=== PATIENT | female | born 1935 | race Caucasian/White ===

== ENCOUNTER 2017-06-28 05:58 | Day surgery (SDC) | payer MEDICARE ==
[2017-06-27 14:26] VITALS: BMI 26.5
[2017-06-28] MEDS ORDERED: Sodium Chloride 0.9% 10 ML ONE ×2 (06:53→08:24)
[2017-06-28 07:11] LABS: #Basophils 0.1 thou/uL (0.0-0.2); #Eosinphils 0.1 thou/uL (0.0-0.7); #Lymphocytes 2.3 thou/uL (1.20-3.40); #Monocytes 1.4 thou/uL (0.11-0.59); %Basophils 0.4 % (0.0-1.0); %Eosinophils 0.9 % (0.0-10.0); %Lymphocytes 17.9 % (21.0-51.0); %Monocytes 10.7 % (0.0-10.0); Hematocrit 41.1 % (36.0-47.0); Mean Platelet Volume 6.9 fL (7.4-10.4); Red Blood Cell (RBC) Count 4.55 mill/uL (4.20-5.40); White Blood Cell (WBC) Count 12.8 thou/uL (4.8-10.8)
[2017-06-28] MEDS ORDERED: Diprivan 20 ML ONE (07:15)
[2017-06-28 07:27] LABS: Prothrombin Time 15.4 SEC (12.0-14.7)
[2017-06-28] MEDS ORDERED: Propofol 200 MG/20 ML VIAL ONE (07:33)
[2017-06-28] MEDS ORDERED: Hydrocortisone 1% Cream 30 GM TUBE ONE (07:47)
--- NOTE | 2017-06-28 08:13 | DIS ---
DATE OF PROCEDURE AND DISCHARGE: 06/28/2017 ADMITTING DIAGNOSES: Her diagnosis prior to being seen in the outpatient was atrial fibrillation, c hronic nonsustained atrial tachyarrhythmia's, structural heart disease, hypercholesterolemia, histor y of premature ventricular contractions, history of coronary disease, status post angioplasty and s tent placement and this was remote. Also history of malignancy. DISCHARGE DIAGNOSES: Her diagnosis prior to being seen in the outpatient was atrial fibrillation, c hronic nonsustained atrial tachyarrhythmia's, structural heart disease, hypercholesterolemia, histor y of premature ventricular contractions, history of coronary disease, status post angioplasty and s tent placement and this was remote. Also history of malignancy. PROCEDURES IN THE HOSPITAL: Electrical cardioversion of atrial fibrillation back to sinus rhythm. DISCHARGE MEDICATIONS: Lipitor, calcium, vitamin D3, Eliquis, levothyroxine, multivitamins, pantopr azole, potassium chloride, probiotics, alprazolam, Lasix, morphine aldosteronism and promethazine. Please refer to the list of medications from the nursing staff that have been reordered or continued . This is unchanged. Her followup will be with the information technology internship the next 2-3 weeks. She will see me at her predet ermined time, she already has an appointment to see me in the office in the next 1-2 months. HOSPITAL COURSE: This very pleasant 82-year-old female with a history of atrial tachycardia's and a rrhythmias, had developed atrial fibrillation with rapid ventricular response. She had been on medi nguyễn management in the form of Multaq as well as Eliquis and was advised to undergo an electrocardiov ersion of atrial fibrillation. This was performed today after she was given shorter acting propofol with 1 attempt at 275. She was successfully converted back to a normal sinus rhythm. When she is awake and stable, she will be discharged home and we will see her back as noted.
--- NOTE | 2017-06-28 08:39 | OP ---
DATE OF PROCEDURE: 06/28/2017 INDICATION FOR PROCEDURE: An 82-year-old female with atrial fibrillation, has been on medical manag ement and also anticoagulation. She has a history of atrial tachycardia and atrial fibrillation and also a history of coronary artery disease. She was advised to undergo electrical cardioversion of her atrial fibrillation. She was taken to the recovery area where she underwent short acting propof ol anesthesia. With one attempt at 275 joules she was successfully converted back to sinus rhythm w ith a heart rate in the 70s and 80s with occasional PVCs, which she has had in the past. There were no complications or difficulties encountered. She will be discharged home if she remains stable.
== END 2017-06-28 08:46 | disposition home or self-care (01) ==
LOC: SDC 05:58
PROVIDERS: ATTEND Internal Medicine Cardiovascular Disease
DX: I48.91 Unspecified atrial fibrillation (principal); I47.1 Supraventricular tachycardia; I49.3 Ventricular premature depolarization; E87.5 Hyperkalemia; E78.5 Hyperlipidemia, unspecified; I25.10 Atherosclerotic heart disease of native coronary artery without angina pectoris; Z79.01 Long term (current) use of anticoagulants; Z79.899 Other long term (current) drug therapy; Z88.1 Allergy status to other antibiotic agents; Z88.5 Allergy status to narcotic agent; Z98.61 Coronary angioplasty status; Z95.828 Presence of other vascular implants and grafts; Z98.890 Other specified postprocedural states; Z87.891 Personal history of nicotine dependence
CPT/HCPCS: 85025; 85610; 85730; 92960; A4216; J1642; J2704

== ENCOUNTER 2017-07-11 14:46 | Outpatient (CLI) | payer MEDICARE ==
[2017-07-11 17:43] LABS: PTT 37.3 SEC (22.9-36.1); Prothrombin Time 14.6 SEC (12.0-14.7)
[2017-07-11 18:00] LABS: Hematocrit 41.6 % (36.0-47.0); Mean Platelet Volume 7.5 fL (7.4-10.4); Red Blood Cell (RBC) Count 4.49 mill/uL (4.20-5.40); White Blood Cell (WBC) Count 32.9 thou/uL (4.8-10.8)
[2017-07-11 18:04] LABS: Anion Gap 12 mmol/L (10-20); BUN (Urea Nitrogen) 10 mg/dL (9.8-20.1); Calc. Creatinine Clearance 0 mL/min (70-130); Carbon Dioxide 29 mmol/L (23-31); Chloride 104 mmol/L (98-107); Estimated GFR-MDRD 68
[2017-07-11 18:05] LABS: Calcium 9.6 mg/dL (7.8-10.44)
== END 2017-07-11 14:47 | disposition home or self-care (01) ==
LOC: LABBT 14:46
PROVIDERS: ATTEND Internal Medicine Cardiovascular Disease
DX: I48.0 Paroxysmal atrial fibrillation (principal)
CPT/HCPCS: 80048; 85027; 85610; 85730

== ENCOUNTER 2017-07-13 10:16 | Outpatient (CLI) | payer MEDICARE ==
[2017-07-13] MEDS ORDERED: Iopamidol 370 76% 50 ML VIAL FS ONE (13:26)
[2017-07-13] MEDS ORDERED: Iopamidol 370 76% 100 ML VIAL ONE (13:26)
--- NOTE | 2017-07-13 16:36 | CT ---
CT CHEST WITH IV CONTRAST CT ABDOMEN AND PELVIS WITH IV CONTRAST 07/13/17 Multiple axial tomograms obtained through the chest, abdomen and pelvis with IV enhancement. Oral co ntrast was given. HISTORY: Ovarian cancer. Currently on chemo. CT CHEST: Comparison made to CT angio of chest 04/08/17. FINDINGS: The lung davis are clear today. The large right effusion noted on the prior exam is no longer prese nt. Hazy ground glass opacities seen in the lower lungs on the prior study is no longer present cate cating clearing of edema. There is no evidence of pulmonary mass or nodule. No mediastinal adenopath y. No axillary adenopathy. Bony thorax appears unremarkable. IMPRESSION: Unremarkable CT chest. CT ABDOMEN AND PELVIS: Comparison made to CT abdomen 04/09/17. No evidence of ascites today. The liver, spleen and pancreas appear unremarkable. A few exophytic cy sts on the superior left kidney measuring 1.8 cm is unchanged. Kidneys show equal and symmetric func tion. There is a small cyst from the anterior lower right kidney measuring approximately 11.0 cm whi ch is stable. There appears to be 2 to 3 tiny calculi which are clustered in the lower collecting structures of th e left kidney. This is a stable finding. There is also a tiny calculus in the lower pole collecting structures of the right kidney measuring approximately 2 to 3 mm which appears to represent a new fi nding. Small bowel loops are normal caliber. Review of the colon reveals increased soft tissue density in t he right colon. A mucosal mass at this location could be excluded. Recommend elective colonoscopy. The aorta is calcified but normal caliber. Review of the mesentery and retroperitoneum again shows scattered mesenteric lymph nodes measuring u p to 1 cm. These are best appreciated on coronal imaging. There are numerous periaortic lymph nodes most of which are subcentimeter. There is haziness in the mesentery seen in the anterior abdomen in the midline and to the left of midline at the level of the transverse colon. This could represent so me residual density from prior mesenteric implants. This mesenteric density does appear improved whe n compared to 04/09/17. The mesenteric lymph nodes also appear decreased in number today when compare d to prior exam. Images through the pelvis show unremarkable uterus for age. There is an 8 mm calcification in the le ft adnexa which may be ovarian. It is unchanged. Osseous structures are unremarkable with no evidenc e of lytic or blastic process. IMPRESSION: 1. Nonspecific mesenteric and periaortic lymph nodes are seen. Linear and hazy density in the m esentery anterior mid abdomen in the midline and to the left of midline is less pronounced than on t he prior study. This probably represents residual from mesenteric implants which have improved with treatment. 2. There is a focal soft tissue density in the right colon. A mucosal lesion should be excluded with colonoscopy. 3. Renal cystic lesions are stable. 4. Nonobstructing renal calculi is noted as described above. 5. Diverticulosis. POS: [facility]
== END 2017-07-13 10:17 | disposition home or self-care (01) ==
LOC: CT 10:16
PROVIDERS: ATTEND Internal Medicine Hematology & Oncology
DX: C48.1 Malignant neoplasm of specified parts of peritoneum (principal); N28.1 Cyst of kidney, acquired; K50.90 Crohn's disease, unspecified, without complications; N20.0 Calculus of kidney
CPT/HCPCS: 71260; 74177

== ENCOUNTER → 2017-07-14 | Day surgery (SDC) | payer MEDICARE ==
[2017-07-11 15:15] VITALS: BMI 26.5
[~2017-07-14] MED LIST: Diprivan 20 ML ONE; Propofol 200 MG/20 ML VIAL ONE
--- NOTE | 2017-07-14 07:56 | DIS ---
DATE OF PROCEDURE 07/14/2017 ADMISSION DIAGNOSES: She was seen in the outpatient setting to undergo electrical cardioversion of atrial fibrillation which also was determined and also has converted to atrial flutter. She had bee n on antiarrhythmic medication. She has a history of structural heart disease, hypercholesterolemia , history of PVCs in the past, premature ventricular contractions, she has a history of coronary art sofia disease. She is status post angioplasty and stent placement in the past. She has apparently si ngle vessel disease for which she underwent multiple stents in the same vessel. DISCHARGE DIAGNOSES: Atrial flutter and prior atrial fibrillation with nonsustained atrial tachycar ankit, structural heart disease, hypercholesterolemia, premature ventricular contractions, coronary ar sugey disease, status post angioplasty and stent placement and history of malignancy for which she is undergoing chemotherapy. PROCEDURE IN THE HOSPITAL: Included an electrical cardioversion of atrial flutter back to sinus rhy thm. DISCHARGE MEDICATIONS: Lipitor, calcium, vitamin D3, Eliquis, levothyroxine, multivitamins, pantopr azole, potassium chloride, probiotics, alprazolam, Lasix as needed, morphine, aldosterone, promethaz ine. She is also taking flecainide 100 mg b.i.d., digoxin 0.25 mg daily, and Coreg 6.25 mg b.i.d. I will decrease the digoxin dose back to 0.125 mg daily. She will continue on the Eliquis at 5 mg t wice a day. FOLLOWUP: Her follow will be with me in the next 1-2 weeks with an EKG in the office to ensure that she remains in sinus rhythm. She will continue her followups also with the planetarium sky show technician as needed. HOSPITAL COURSE: This very pleasant 82-year-old female has a history of atrial fibrillation/flutter and atrial arrhythmias which had been difficult to manage on medical treatment. We have tried diff erent various medications including Multaq, which has not maintained her in sinus rhythm. She had u ndergone previous electrocardioversion, but converted back to atrial fibrillation. She was then swi tched over to flecainide as well as beta blockers and digoxin and when she arrived today for the elizabet ctrical cardioversion she appeared to be in atrial flutter with a variable block. She underwent elizabet ctrical cardioversion with one attempt at 150 joules and is maintaining now sinus rhythm. If she re alejandro stable, she will be discharged home in the next couple of hours.
--- NOTE | 2017-07-14 09:34 | OP ---
DATE OF PROCEDURE: 07/14/2017 INDICATION FOR PROCEDURE: An 82-year-old female with atrial fibrillation, flutter and atrial arrhyt hmias have been treated by medical management. She continued to have episodes of atrial fibrillatio n and was then converted over to flecainide after being given several days of flecainide treatment. She was advised to undergo repeat attempt electrical cardioversion. When she arrived today, she ap peared to be in atrial flutter actually, and we decided to proceed with the electrical cardioversion . She was given short acting propofol for the procedure and using one attempt at 150 joules, she wa s successfully converted back to normal sinus rhythm with heart rate in the 70s. She remains stable . She had no complications during the procedure and if she remains stable, will be discharged home. IMPRESSION: Atrial fibrillation, atrial flutter, atrial arrhythmias, which were successfully cardio verted back to normal sinus rhythm.
--- NOTE | 2017-07-14 15:26 | EKG ---
Test Reason : POST CARDIOVERSION Blood Pressure : / mmHG Vent. Rate : 079 BPM Atrial Rate : 079 BPM P-R Int : 228 ms QRS Dur : 096 ms QT Int : 372 ms P-R-T Axes : 069 038 128 degrees QTc Int : 426 ms Sinus rhythm with 1st degree A-V block Nonspecific ST and T wave abnormality Abnormal ECG When compared with ECG of 08-APR-2017 13:24, (Unconfirmed) Fusion complexes are no longer Present Premature ventricular complexes are no longer Present WA interval has increased Questionable change in QRS axis T wave inversion now evident in Lateral leads Confirmed by DR. Brittany FUENTES ([id number]) on 07/14/2017 3:26:31 PM Referred By: ALIA Confirmed By:DR. Brittany FUENTES
== END ==
LOC: CCL 05:57
PROVIDERS: ATTEND Internal Medicine Cardiovascular Disease
DX: I48.91 Unspecified atrial fibrillation (principal); E78.00 Pure hypercholesterolemia, unspecified; I10 Essential (primary) hypertension; Z88.5 Allergy status to narcotic agent; Z88.1 Allergy status to other antibiotic agents; Z79.01 Long term (current) use of anticoagulants; Z95.5 Presence of coronary angioplasty implant and graft; Z79.899 Other long term (current) drug therapy; Z98.890 Other specified postprocedural states; Z87.891 Personal history of nicotine dependence; Z82.49 Family history of ischemic heart disease and other diseases of the circulatory system
CPT/HCPCS: 92960; 93005; 93010; J2704

== ENCOUNTER 2017-09-16 18:48 | Observation (INO) | payer MEDICARE ==
[2017-09-16 19:29] LABS: INR-International Normal Ratio 1.1; Prothrombin Time 14.3 SEC (12.0-14.7)
[2017-09-16 19:39] LABS: ALT (SGPT) 11 U/L (8-55); AST (SGOT) 17 U/L (5-34); Albumin 3.9 g/dL (3.4-4.8); Alkaline Phosphatase 91 U/L (40-150); Anion Gap 15 mmol/L (10-20); BUN (Urea Nitrogen) 10 mg/dL (9.8-20.1); Bilirubin, Total 1.1 mg/dL (0.2-1.2); Calc. Creatinine Clearance 0 mL/min (70-130); Calcium 9.6 mg/dL (7.8-10.44); Carbon Dioxide 24 mmol/L (23-31); Chloride 107 mmol/L (98-107); Estimated GFR-MDRD 80; Globulin 3.5 g/dL (2.4-3.5); Glucose 109 mg/dL (83-110); Potassium 3.4 mmol/L (3.5-5.1); Protein, Total 7.4 g/dL (6.0-8.3); Sodium 143 mmol/L (136-145)
[2017-09-16 19:42] LABS: CKMB 1.2 ng/mL (0-6.6); Troponin I 0.022 ng/mL (< 0.028)
[2017-09-16 19:46] LABS: #Basophils 0.1 thou/uL (0.0-0.2); #Eosinphils 0.3 thou/uL (0.0-0.7); #Lymphocytes 2.5 thou/uL (1.20-3.40); #Monocytes 0.9 thou/uL (0.11-0.59); #Neutrophils 3.6 thou/uL (1.40-6.50); %Basophils 1.3 % (0.0-1.0); %Eosinophils 3.9 % (0.0-10.0); %Lymphocytes 33.7 % (21.0-51.0); %Monocytes 11.6 % (0.0-10.0); %Neutrophils 49.6 % (42.0-75.0); Hemoglobin 14.4 g/dL (12.0-16.0); Mean Corpuscular HGB CONC 29.9 g/dL (32.0-36.0); Mean Corpuscular Hemoglobin 27.1 pg (27.0-31.0); Mean Corpuscular Volume 90.9 fl (81.0-99.0); Mean Platelet Volume 5.9 fL (7.4-10.4); Platelet Count 290 thou/uL (130-400); RBC Distribution Width 12.9 % (11.5-14.5); Red Blood Cell (RBC) Count 5.12 mill/uL (4.20-5.40); White Blood Cell (WBC) Count 7.3 thou/uL (4.8-10.8)
--- NOTE | 2017-09-16 19:52 | CT ---
CT OF THE BRAIN WITHOUT CONTRAST 09/16/17 INDICATION: Altered mental status. COMPARISON: None. FINDINGS: No acute infarct, hemorrhage or hydrocephalus is present. Skull and extracranial soft tissues are unr emarkable. Septum pellucidum and third ventricle are midline. IMPRESSION: No acute intracranial abnormality. POS: [facility]
[2017-09-16 20:22] LABS: Bilirubin Negative (Negative); Blood, Urine Trace (Negative); Clarity Clear (Clear); Glucose, Urine (Dipstick) Negative (Negative); Leukocyte Negative (Negative); Nitrite Negative (Negative); Protein, Urine (Dipstick) Negative (Neg-Trace); Specific Gravity, Urine 1.006 (1.002-1.036); Urobilinogen 0.2 mg/dL (0.2-1.0)
[2017-09-16 20:28] LABS: Bacteria/HPF None Seen HPF (None Seen); Hyaline Casts/LPF 0-3 HYALINE CAST LPF (0-3 Hyaline); RBC/HPF 0-3 HPF (0-3); Squamous Epithelial 0-3 HPF (0-3); WBC/HPF 0-3 HPF (0-3)
[2017-09-16] MEDS ORDERED: Amlodipine 5 MG TAB ONE (20:58)
[2017-09-16] MEDS ORDERED: Acetaminophen 325 MG TAB ONE (22:19)
[2017-09-16] MEDS ORDERED: Labetalol HCl 100 MG/20 ML VIAL ONE (23:11)
[2017-09-17] MEDS ORDERED: Acetaminophen 325 MG TAB PO PRN (00:41)
[2017-09-17] MEDS ORDERED: Ondansetron ODT 4 MG TAB SL PRN (00:41)
[2017-09-17] MEDS ORDERED: Ondansetron HCl/PF 4 MG/2 ML Vial IVP PRN (00:41)
[2017-09-17 00:48] VITALS: BMI 26.1
[2017-09-17] MEDS ORDERED: Furosemide 20 MG TAB PO PRN (07:14)
[2017-09-17 08:22] VITALS: BP 162/68; TEMP 98.1
[2017-09-17] MEDS ORDERED: Apixaban 5 MG TAB PO SCH (09:00)
[2017-09-17] MEDS ORDERED: Amlodipine 10 MG TAB PO SCH (09:00)
[2017-09-17] MEDS ORDERED: Digoxin 0.125 MG TAB PO SCH (09:00)
[2017-09-17] MEDS ORDERED: Carvedilol 6.25 MG TAB PO SCH (09:00)
--- NOTE | 2017-09-17 10:08 | MRI ---
MRI BRAIN WITHOUT CONSTRAST: HISTORY: Altered mental status. FINDINGS: Correlation is made with the CT scan of the previous day. No restricted diffusion is seen. 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 No hemorrhag e, midline shift, or abnormal extraaxial fluid collections are seen. The ventricular size is appropr iate and the basilar cisterns are patent. There is mild mucosal disease in the paranasal sinuses. IMPRESSION: No CT evidence of acute intracranial process. POS: [facility]
--- NOTE | 2017-09-18 02:41 | SS ---
DATE OF ADMISSION: 09/16/2017 DATE OF DISCHARGE: 09/17/2017 PRIMARY CARE PHYSICIAN: Francisco Knapp MD CHIEF COMPLAINT: Altered speech. HISTORY OF PRESENT ILLNESS: The patient was noted by family members with altered speech, did not hav e any facial droop, changes in extremity strength or ambulation. By the time patient was transported to the [facility] Emergency Department, changes in speech were resolved, however, found t o have blood pressures of [address] was negative. The patient being treated wit h chemotherapy for history of ovarian cancer, status post hysterectomy and sentinel node removal. Adrian crouch has been stable on Eliquis for AFib and it has been followed by Dr. Vines, she had been cardiove rted 3 times in the last year, most recent several months ago. The patient denies any chest pain or shortness of breath. HOSPITAL COURSE: The patient's blood pressure trended down after IV labetalol, followed by Norvasc a nd p.o. Norvasc. Patient has no further symptoms during hospital stay. MRI of the head showed prior small infarct, however, no acute events. The patient was presented with daughter and her grandson, and felt able-bodied to return home, was able to ambulate and urinate prior to discharge. REVIEW OF SYSTEMS: Formally no fevers, no chills, no cough, no congestion, no chest pain, no shortne ss of breath, no abdominal pain, no diarrhea, no constipation, no lower extremity edema, no claudicat ion. Changes in speech as above, resolved. No headache, no vision changes, no decreased muscle stre ngth. PHYSICAL EXAMINATION: VITAL SIGNS: Temperature 98.1, pulse of 76, respiratory rate 16, oxygen saturation 97% on room air, blood pressure prior to discharge 152/68. GENERAL: The patient is alert and oriented, in no acute distress. HEENT: Normocephalic, atraumatic. Extraocular movements are intact. Sclerae are clear. Oral mucos a is moist. NECK: Supple, nontender. HEART: Irregularly irregular. LUNGS: Clear to auscultation bilaterally. ABDOMEN: Soft, nontender, positive bowel sounds throughout. EXTREMITIES: Lower extremities without cyanosis or edema. NEUROLOGIC: The patient is alert and oriented x3. No focal deficits. Speech is normal. 5/5 streng th in upper and lower extremities. PAST MEDICAL AND SURGICAL HISTORY: Coronary artery disease, hypertension, hypothyroidism, hyperlipid emia, secondary malignancy of retroperitoneal space, brain cancer, secondary neoplasm of colon, parox ysmal atrial fibrillation. HOME MEDICATIONS: Carafate 1 gram twice daily, digoxin once daily, carvedilol 6.25 mg twice daily, a torvastatin 40 mg 1 tab p.o. daily, prochlorperazine maleate 10 mg q.6 hours for nausea, clonidine 0. 1 mg 1 tab p.o. daily p.r.n. for blood pressure greater than 180/110. New Medications: Levothyroxin e 100 mcg, Zofran 8 mg, promethazine 25 mg p.r.n. for nausea, morphine sulfate 50 mg 1 tab p.o. q.4 h ours p.r.n. for pain, Lasix 40 mg 1 tab p.o. daily, Klor-Con potassium chloride 20 mEq 1 tab p.o. larisa ly, alprazolam 0.25 mg 1/2 tab p.r.n. for anxiety, pantoprazole 40 mg 1 tab p.o. daily, Eliquis 5 mg 1 tab p.o. b.i.d., atenolol 100 mg 1 tab p.o. twice daily, atorvastatin 20 mg 1 tab p.o. daily, and n ew medication amlodipine 10 mg 1 tab p.o. daily. SOCIAL HISTORY: Patient is former smoker. No current alcohol or tobacco use. FAMILY HISTORY: Mother and siblings with history of heart disease. LABORATORY AND DIAGNOSTIC DATA: Reviewed. White blood cell count 7.3, hemoglobin 14.4, platelet cou nt of 290. INR 1.1. Sodium 143, potassium of 3.4, CO2 of 24, creatinine of 0.7, glucose of 109. Ca lcium at 9.6. Total bilirubin 1.1, AST 17, ALT 11, CK-MB 1.2, troponin x1 0.022. Albumin at 3.9. U rinalysis clear. Negative protein, negative ketones, trace blood, negative nitrites, negative for le ukocyte esterase. No red blood cells found on microscopy. CT brain, no acute hemorrhagic or other e vents. MRI of brain, no acute intracranial processes. ASSESSMENT AND PLAN: Hypertensive urgency, rule out cerebrovascular accident. The patient is much i mproved with blood pressure control. Discharge the patient with amlodipine, follow up on an outpatie nt basis, clonidine p.r.n. for elevation, otherwise continue beta gordo. Follow up with PCP for am bulatory monitoring. No CVA on MRI. The patient may continue her Eliquis.
[2017-09-18] MEDS ORDERED: Levothyroxine Sodium 100 MCG TAB PO SCH (06:00)
== END 2017-09-17 12:12 | disposition home or self-care (01) ==
LOC: SCSER 18:48 → 2SW 20:41
PROVIDERS: ADMIT Family Medicine; ATTEND Family Medicine
DX: I16.0 Hypertensive urgency (principal); C56.9 Malignant neoplasm of unspecified ovary; I25.10 Atherosclerotic heart disease of native coronary artery without angina pectoris; I10 Essential (primary) hypertension; E03.9 Hypothyroidism, unspecified; E78.5 Hyperlipidemia, unspecified; I48.0 Paroxysmal atrial fibrillation; H91.92 Unspecified hearing loss, left ear; K21.9 Gastro-esophageal reflux disease without esophagitis; I25.2 Old myocardial infarction; Z85.841 Personal history of malignant neoplasm of brain; Z85.038 Personal history of other malignant neoplasm of large intestine; Z85.89 Personal history of malignant neoplasm of other organs and systems; Z87.891 Personal history of nicotine dependence; Z79.01 Long term (current) use of anticoagulants; Z79.899 Other long term (current) drug therapy; Z95.5 Presence of coronary angioplasty implant and graft; Z90.710 Acquired absence of both cervix and uterus; Z98.890 Other specified postprocedural states; F41.9 Anxiety disorder, unspecified; Z88.5 Allergy status to narcotic agent; Z88.8 Allergy status to other drugs, medicaments and biological substances
CPT/HCPCS: 70450; 70551; 80053; 82553; 84484; 85025; 85610; 93005; 96374; 99285; G0378; 81003; 81015; A4216

== ENCOUNTER 2018-05-10 08:49 | Outpatient (CLI) | payer MEDICARE ==
--- NOTE | 2018-05-10 13:39 | CT ---
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 COMPARISON: 07/13/2017 and 03/17/2017 TECHNIQUE: An abdomen and pelvis CT are performed with IV and oral contrast. Coronal images are submitted for i nterpretation. FINDINGS: ABDOMEN: Enlarged cardiac silhouette. No significant pericardial fluid. There is a nodule in the r ight lower lobe, measuring 0.9 x 0.8 cm. The nodule is unchanged from 03/17/2017, at which time it m easured 1.1 x 0.7 cm. There is atherosclerosis of a nonaneurysmal aorta. There are enlarged periaortic and aortocaval lymp h nodes. The operations representative periaortic lymph node measures 1 x 1.5 cm. A conglomeration of aortocav al lymph nodes measures 1.8 x 1 cm. Unremarkable gallbladder. Intrahepatic and extrahepatic portal vein is patent. The liver, spleen, pancreas, and adrenal glands have appropriate enhancement. There are exophytic hypodensities emanating from the left and right kidneys, similar to the previous examination. The lesions are compatible with renal cysts. The largest cyst is in the upper pole of the right kidney, measuring 1.6 cm. There is a nonobstructing calculus in the right lower pole intra renal collecting system. There is an additional nonobstructing calculus in the lower pole left kidne y. No gastrohepatic or retrocrural lymphadenopathy. There is increased soft tissue density in the perip ortal region. Lymphadenopathy in the periportal region cannot be excluded. This enlarged lymph node is difficult to separate from the pancreas and measures 2.4 x 2.3 cm. This conglomeration of peripo rtal lymph nodes is not appreciated on the previous study. There is appropriate enhancement of the liver, spleen, pancreas, and adrenal glands. There is symmet vel enhancement of the kidneys. There is no obstructive uropathy. There are nonspecific, nonenlarged mesenteric lymph nodes. There is a less stippled appearance of th e omentum at this time. Obvious peritoneal carcinomatosis is not appreciated. Focal thickening of the gastric antrum is likely due to contraction. The duodenum and small bowel lo ops are normal. The ileocecal junction is unremarkable. There is contrast and minimal fecal materia l throughout the colon. Diverticulosis without evidence of diverticulitis. Mucosal thickening of th e distal descending colon and sigmoid colon are noted. PELVIS: Surgically absent uterus. No pelvic mass, lymphadenopathy, free air, or free fluid. The ur inary bladder is unremarkable. There are no lytic or blastic lesions in the osseous structures. IMPRESSION: 1. Interval hysterectomy. 2. Previously noted stippling of the mesentery is less evident on the current examination. 3. Increased periportal lymph nodes. 4. Retroperitoneal lymphadenopathy. POS: [facility]
== END 2018-05-10 08:50 | disposition home or self-care (01) ==
LOC: SCSCT 08:49
PROVIDERS: ATTEND Internal Medicine Hematology & Oncology
DX: C48.1 Malignant neoplasm of specified parts of peritoneum (principal); R59.0 Localized enlarged lymph nodes; Z90.710 Acquired absence of both cervix and uterus
CPT/HCPCS: 74177

== ENCOUNTER 2018-06-20 07:53 | Outpatient (CLI) | payer MEDICARE ==
[2018-06-20] MEDS ORDERED: Iopamidol 370 76% 100 ML VIAL ONE (09:00)
--- NOTE | 2018-06-20 13:42 | CT ---
CT ABDOMEN AND PELVIS WITH CONTRAST: Date: 06/20/18 HISTORY: 158.8. C48.1. Follow-up ovarian cancer. COMPARISON: Exam of 05/10/18. CT 07/13/17. FINDINGS: The heart size is enlarged. No pericardial effusion. Using the same point of reference, the right low er lobe pulmonary nodule measures 0.9 x 1.1 cm, previously 0.8 x 0.9 cm. The hypodensity superior clemente e left kidney unchanged in size and attenuation. The previously described 2.3 x 2.4 cm kwasi hepatis lymph node does not increase in size, still continues to measure approximately 2.3 x 2.4 cm. Anterior periaortic lymph node previously measured 1.0 cm x 1.5 cm, now measures approximately 1.7 x 1.2 cm. Right periaortic lymph node using the same plane of reference previously measured 1.8 x 1.0 cm, and o n today's exam, axial image 30, measures 1.8 x 1.1 cm. There is abnormal thickening of the gastric an trum circumferentially. There is a very large right internal iliac lymph node, which on today's exami nation measures 2.5 x 3.0 cm, previously 2.2 x 1.9 cm. There is some central necrosis. There is also abnormal right common iliac lymph node measuring 1.7 x 2.2 cm, previously 1.5 x 1.9 cm. Small left ex ternal iliac lymph nodes are present. There is moderate diverticular disease without active current inflammation. There is a very subtle hy podensity, hepatic segment 5, measuring 3.0 mm, not seen on the prior two examinations, although coul d have been sequelae of volume averaging. Metastatic disease is a possibility. There is also a subtle hypodensity hepatic segment 2, axial image 21, also too small to fully characterize, although was pr esent on the prior examination. There is no acute osseous abnormality. IMPRESSION: 1. Size increased metastatic iliac and periaortic lymph nodes. 2. Size increased nodule in the right lower lobe, concerning for progression of metastatic disease. 3. Unchanged left inferior renal and right inferior renal calculi. 4. Abnormal thickening circumferentially of the gastric antrum, for which nonemergent upper endoscop y is recommended. 5. Subtle 3.0 mm hypodensity hepatic segment 5, axial image 27, not seen on the prior examinations, although may be sequelae of volume averaging given the very small size. Close attention on follow-up recommended. 6. Mild diverticular disease without active current inflammation. 7. Extensive atherosclerotic plaque throughout the aortoiliac system. POS: [facility]
== END 2018-06-20 07:54 | disposition home or self-care (01) ==
LOC: SCSCT 07:53
PROVIDERS: ATTEND Internal Medicine Hematology & Oncology
DX: C48.1 Malignant neoplasm of specified parts of peritoneum (principal); C77.5 Secondary and unspecified malignant neoplasm of intrapelvic lymph nodes; C77.2 Secondary and unspecified malignant neoplasm of intra-abdominal lymph nodes; R91.1 Solitary pulmonary nodule; N20.0 Calculus of kidney; K31.89 Other diseases of stomach and duodenum; K57.90 Diverticulosis of intestine, part unspecified, without perforation or abscess without bleeding; I70.0 Atherosclerosis of aorta; I70.8 Atherosclerosis of other arteries
CPT/HCPCS: 74177; 82565

== ENCOUNTER 2018-08-14 07:53 | Outpatient (CLI) | payer MEDICARE ==
[2018-08-14 10:37] LABS: Estimated GFR-MDRD - POC Greater than 90
--- NOTE | 2018-08-15 07:17 | CT ---
CT ABDOMEN AND PELVIS WITH IV CONTRAST: Indication: History of ovarian cancer. Comparison: 06-20-18 FINDINGS: The 1.1 cm pulmonary nodule within the right lower lobe is stable. A tiny subcentimeter hypodensity within the left hepatic lobe and right hepatic lobe are stable. There is worsening gallbladder wall thickening which is nonspecific. There is wall thickening involvi ng the gastric antrum which is stable. There is worsening periportal and portocaval lymphadenopathy. One of the indexed nodes seen adjacent to the periportal region previously measured 15 mm and now measures 18 mm. One see adjacent to the p ancreatic head previously measured 2.1 cm and now measures 2.4 cm. Portocaval lymph node previously m easuring 1.3 cm now measures 1.8 cm. There is worsening periaortic lymphadenopathy. Indexed node seen anterior to the aorta on Image 25 of Series 2 now measures 1.3 cm where it previously measured 1.1 c m. There is worsening right common iliac chain lymphadenopathy with an enlarged lymph node seen along th e right common iliac chain measuring 1.8 cm where previously it measured 1.5 cm. The right external i liac chain node now measure 3.7 x 2.9 cm where it previously measured 2.7 x 2.4. There is scattered colonic diverticula. There is scattered vascular calcification involving the abdom inal aorta. The spleen and adrenal glands appear within normal limits. Pancreas appears within normal limits. The kidneys appear within normal limits. There is stable bilateral nephrolithiasis. Bilatera l renal cysts are stable. There is diffuse osteopenia. No definite acute osseous abnormality is evident. IMPRESSION: 1. Worsening lymphadenopathy of the abdomen and pelvis. 2. Stable right lower lobe pulmonary nodule. 3. Interval development of gallbladder wall thickening which is nonspecific. Recommend clinical corre lation for acute cholecystitis. 4. Stable bilateral renal cysts and bilateral nephrolithiasis. 5. Stable colonic diverticulosis. Findings were called to Dr. De La Cruz's answering service at 12:02 p.m. on 08-14-18. Code CR POS: [facility]
== END 2018-08-14 07:54 | disposition home or self-care (01) ==
LOC: SCSCT 07:53
PROVIDERS: ATTEND Internal Medicine Hematology & Oncology
DX: C48.1 Malignant neoplasm of specified parts of peritoneum (principal); R59.0 Localized enlarged lymph nodes; R91.1 Solitary pulmonary nodule; N28.1 Cyst of kidney, acquired; N20.0 Calculus of kidney; K57.30 Diverticulosis of large intestine without perforation or abscess without bleeding; K82.8 Other specified diseases of gallbladder
CPT/HCPCS: 74177; 82565

== ENCOUNTER 2018-11-07 08:02 | Outpatient (CLI) | payer MEDICARE ==
[2018-11-07 10:11] LABS: Estimated GFR-MDRD - POC Greater than 90
[2018-11-07] MEDS ORDERED: Iopamidol 370 76% 100 ML VIAL ONE (10:41)
--- NOTE | 2018-11-07 12:13 | CT ---
CT OF THE ABDOMEN AND PELVIS WITH IV CONTRAST: Date: 11-07-18 Provided Clinical History: History of ovarian cancer. FINDINGS: Comparison is made with a study dated 08-14-18. There is a stable approximately 1 cm noncalcified right lower lobe pulmonary nodule. The visualized l violette bases are otherwise free of significant opacity. Cyst is again seen involving the left kidney. The solid abdominal organs demonstrate a stable CT appe arance. Extensive retroperitoneal lymph node enlargement is redemonstrated, without significant interval person ge with respect to the prior study. There are several lymph nodes present within the pelvic fat in th e midline that appear larger than on the prior study. For example, a lymph node on image 61 of series 2 measures about 1.3 cm in short axis on the current study (as compared to about 9 mm on the prior e xamination). There is no bowel dilatation, free fluid or fat stranding apparent. Extensive atherosclerotic vascular calcification involving the abdominal aorta and its branches is re demonstrated. Prominent sigmoid colonic diverticulosis changes are again seen. The osseous structures demonstrate no concerning lytic or blastic lesion. IMPRESSION: 1. Interval enlargement of intrapelvic lymph nodes as above. Otherwise stable abdominal/pelvic lymph node enlargement. 2. Stable right lower lobe pulmonary nodule. POS: TPC
== END 2018-11-07 08:03 | disposition home or self-care (01) ==
LOC: SCSCT 08:02
PROVIDERS: ATTEND Internal Medicine Hematology & Oncology
DX: C48.1 Malignant neoplasm of specified parts of peritoneum (principal); R60.0 Localized edema; R91.1 Solitary pulmonary nodule
CPT/HCPCS: 36415; 74177; 80053; 82248; 82306; 82565; 83615; 84100; 84550; 85025; 86304

== ENCOUNTER 2019-05-22 07:57 | Outpatient (CLI) | payer MEDICARE ==
[2019-05-22] MEDS ORDERED: Iopamidol 370 76% 100 ML VIAL ONE (09:00)
--- NOTE | 2019-05-22 13:10 | CT ---
EXAM: CT brain without and with contrast HISTORY: History of ovarian cancer with intra-abdominal lymphadenopathy COMPARISON: None TECHNIQUE: Multiple contiguous axial images were obtained and a CT of the brain without and with cont rast. FINDINGS: There are scattered hypodensities in the subcortical and periventricular white matter consi stent with small vessel ischemic disease. There is no evidence of hydrocephalus, intracranial hemorrhage, or extra-axial fluid collection. No abnormal enhancement is seen. The calvarium and overlying soft tissues are unremarkable. The visualized paranasal sinuses and masto id air cells are well aerated. IMPRESSION: No evidence of acute intracranial abnormality
--- NOTE | 2019-05-22 13:39 | CT ---
CT OF THE CHEST, ABDOMEN AND PELVIS WITH IV CONTRAST: 05/22/19 INDICATION: History of ovarian cancer and peritoneal metastatic disease. COMPARISON: CT of the abdomen and pelvis dated 11/07/18 and chest, abdomen and pelvis dated 07/13/17. TECHNIQUE: Multiple CT images were obtained to the chest, abdomen, and pelvis utilizing IV and enteric contrast. The patient was received 100 mL of Isovue 370. FINDINGS: There is scattered emphysema. There is small bilateral pleural effusions. There is cardiomegaly with interstitial prominence suspicious for underlying mild CHF. There are coronary artery ant thoracic aortic calcifications. There are enlarging lymph nodes within the mediastinum. There is a prevascular lymph node now measuring 1 cm where previously measured 5 mm . There is a right tracheobronchial lymph node now measuring 1 cm where it previously measured 6 mm. There is a small hiatal hernia. There is persistent mild wall thickening involving the distal gastric antrum. There is mild gallbladder wall thickening. There is stable tiny left hepatic cysts. There is stable bilateral renal cysts and bilateral nephrolithiasis. No hydronephrosis is demonstrate d. Adrenal glands and spleen appear within normal limits. Previously seen peripancreatic lymph node measuring 2.2 cm now measures 1.2 cm. Previously seen perip ortal lymph node previously measuring 2.1 cm now measures 8 mm. Previously seen portacaval lymph node measuring 1.7 cm now measures 9 mm. The spleen, pancreas, and adrenal glands appear within normal limits. Reproductive structures surgically absent. The bladder, rectum, and perirectal soft tissues are unre markable appearing. Large right external iliac lymph node previously measuring 3 x 3.6 cm now measures 1.5 x 1.7 cm. Othe r additional enlarged lymph nodes seen along the iliac chain, one particularly along the right common iliac chain measuring 1.7 cm now measures 7 mm. Some shotty appearing lymph nodes again seen within the periaortic and aortocaval region of the retroperitoneum. These also appears slightly smaller than on the comparison exam. No drainable fluid collection is evident. No overt peritoneal studding is demonstrated. There is diffuse osteopenia. There is scattered degenerative and osteoarthritic change. No suspicious osteolytic or osteoblastic lesion identified. IMPRESSION: 1. Findings consistent with response to therapy. The enlarged lymph nodes of the retroperitoneum , upper abdomen, and pelvis have decreased in size. 2. Findings of mild CHF. 3. Slight interval prominence of the mediastinal lymph nodes when compared to a prior in 2017. S hort term follow-up in six to eight weeks may be helpful to document stability. This may be reactive in nature; however, malignant lymphadenopathy cannot be entirely excluded. POS: TPC
--- NOTE | 2019-05-22 14:04 | CT ---
CT NECK SOFT TISSUES WITH CONTRAST: 05/22/19 HISTORY: 84-year-old female with ICD-10: C48.1, malignant neoplasm of specified parts of peritoneum. Ovarian cancer with peritoneal metastasis. COMPARISON: None. FINDINGS: Right pleural effusion and smaller left pleural effusion. Nonspecific multiple scattered slightly enl arged bilateral axillary and upper mediastinal lymph nodes, on the order of 1 cm in size each and sma ller. The same is true of bilateral level IIb, III and IV lymph nodes. There are also a few bilateral level V cervical lymph nodes that are less than 1 cm in size, but some of them are abnormal in shape (roun d). The most suspicious one of these is a round 0.9 x 0.9 x 1.2 cm left level Va lymph node (axial im age 80 of 135, series 503; coronal image 75 of 118, series 505, and sagittal image 81 of 119, series 506). It has slightly heterogeneous density. The pharyngeal mucosal, parapharyngeal, perivertebral, retropharyngeal, parotid, submandibular, and m asticator, spaces, are unremarkable. The thyroid gland is either extremely atrophic or absent. Larynx is normal. Paranasal sinuses are clear. IMPRESSION: Mildly enlarged upper mediastinal, and mid and lower cervical, lymphadenopathy, at least mildly suspi cious for metastatic lymphadenopathy. The most suspicious cervical lesion is a left level Va lymph no de on the order of 1 cm in size. POS: BEL
== END 2019-05-22 07:58 | disposition home or self-care (01) ==
LOC: SCSCT 07:57
PROVIDERS: ATTEND Internal Medicine Hematology & Oncology
DX: C48.1 Malignant neoplasm of specified parts of peritoneum (principal); R59.1 Generalized enlarged lymph nodes
CPT/HCPCS: 70470; 70491; 71260; 74177; Q9967

== ENCOUNTER 2019-09-23 07:54 | Outpatient (CLI) | payer MEDICARE ==
--- NOTE | 2019-09-23 11:35 | CT ---
CHEST CT WITH CONTRAST ABDOMEN CT WITH CONTRAST PELVIC CT WITH CONTRAST: HISTORY: Ovarian cancer follow-up. Correlation: None. COMPARISON: 05/22/2019. FINDINGS: Chest CT: Mediastinum: Redemonstration of mediastinal lymphadenopathy. Enlarged right paratracheal lymph node c urrently measures 1.6 x 1.4 cm. Previously, lymph node measured 1.5 x 1.4 cm. Second right paratracheal lymph node currently measures 1.5 x 1.1 cm. Previously, this lymph node measured 1.8 x 1 .0 cm. There is an AP window lymph node, currently measuring 1.5 x 1.0 cm (previously measuring 0.9 x 1.8 cm. Enlarged prevascular lymph node currently measures 0.8 x 1.5 cm. Previously, this lymph nod e measured 1.0 x 1.6 cm. Aorta: Atherosclerosis. Normal caliber. Heart: Upper normal heart size. No significant pericardial fluid. There are coronary artery calcifica tions. Trachea and central bronchi: Patent. Pleural spaces: No pleural effusion. Right lung: Dependent atelectatic changes. Patchy groundglass opacities and septal thickening may be due to volume overload. Groundglass opacity/nodule in the right lower lobe measures 1.0 x 0.8 cm. Left lung:Minimal emphysematous change and dependent atelectatic change. Patchy ground glass opacitie s and septal thickening may be due to volume overload. Pneumothorax: None. Abdomen CT: Gallbladder: Unremarkable. Portal vein: Patent. Liver: Appropriate enhancement.. Spleen: Appropriate enhancement. Pancreas: Appropriate enhancement. Adrenal glands: Appropriate enhancement. Lymphadenopathy: Interval enlargement of periportal lymph nodes. Currently, enlarged periportal lymph node measures 1.7 x 1.7 cm and 4.4 x 2.8 cm. Grossly, the largest conglomeration of lymph nodes in the periportal region was 1.1 x 1.7 cm. There are enlarged periaortic and aortocaval lymph nodes with associated retroperitoneal fat stranding. There is a necrotic left periaortic lymph node measuring 1.1 x 0.8 cm. Enlarged left common iliac lymph node measures 0.8 x 1.1 cm. New enlarged right common iliac lymph node measures 0.9 x 0.9 cm and 1.1 x 1.1 cm. Previously, the right common iliac lymph node measures 1.1 x 1.0 cm. Kidneys: Symmetric enhancement. No obstructive uropathy. Bilateral nonobstructing intrarenal calculi. Stable left renal cyst measuring 1.6 x 2.3 cm. Mesentery: No mass, free air or free fluid. Alimentary canal: No evidence of bowel obstruction. Multiple normal caliber small bowel loops. Unrema rkable ileocecal junction. Scattered fecal material in a nondistended, nondilated colon. Diverticulosis, without evidence of diverticulitis. Pelvis CT: Enlarged left pelvic lymph nodes, along the external iliac chain. Enlarged lymph node measures 1.3 x 0.9 cm, 0.9 x 1.1 cm and 1.3 x 1.1 cm. Previously, these lymph nodes measured 1.9 x 0.9, 0.9 x 1.4 and 0.9 x 1.5 cm respectively. IMPRESSION: 1. Redemonstration of extensive lymphadenopathy involving the chest, abdomen, and pelvis. With regard s to the lymph nodes in the mediastinum, there are some lymph nodes that have increased in size while others have decreased in size. With regards to the retroperitoneal lymph nodes, there is a new lymph node adjacent to the right common iliac artery. Additional retroperitoneal lymph nodes are stable in size. 2. Interval development of extensive periportal lymphadenopathy. Given the worsening periportal lymph adenopathy, there is evidence of progression of disease. Transcribed Date/Time: 09/23/2019 12:08 PM
== END 2019-09-23 07:55 | disposition home or self-care (01) ==
LOC: SCSCT 07:54
PROVIDERS: ATTEND Internal Medicine Hematology & Oncology
DX: C48.1 Malignant neoplasm of specified parts of peritoneum (principal); R59.0 Localized enlarged lymph nodes
CPT/HCPCS: 71260; 74177; 82565

== ENCOUNTER 2020-01-16 14:34 | Outpatient (CLI) | payer MEDICARE ==
--- NOTE | 2020-01-16 15:17 | RAD ---
EXAM: Two views chest PROVIDED CLINICAL HISTORY: Shortness of breath 3 weeks. Ovarian cancer. COMPARISON: 07/04/2017 FINDINGS: Right subclavian Mediport catheter remains in place. Cardiac silhouette is mildly enlarged. Pulmonary vasculature is within normal limits. The lungs remain clear. No discrete pulmonary nodule or mass is seen. There is no consolidation or pleural fluid identified. Vascular calcifications are again see n in the thoracic aorta. The osseous structures have a normal appearance. IMPRESSION: 1. Mild cardiomegaly. 2. No acute cardiopulmonary process..
== END 2020-01-16 14:35 | disposition home or self-care (01) ==
LOC: SCSRAD 14:34
PROVIDERS: ATTEND Nurse Practitioner
DX: R06.02 Shortness of breath (principal); I51.7 Cardiomegaly
CPT/HCPCS: 71046

== ENCOUNTER 2020-03-11 08:12 | Outpatient (CLI) | payer MEDICARE ==
--- NOTE | 2020-03-11 11:34 | CT ---
CT OF THE CHEST, ABDOMEN AND PELVIS WITH IV CONTRAST INDICATION: History of ovarian cancer and chemotherapy COMPARISON: CT of the chest, abdomen and pelvis with contrast dated September 23, 2019 FINDINGS: CHEST: Lungs: There is stable scattered areas of emphysema. There is a stable 1 x 0.8 cm pulmonary nodule in the right lower lobe. No new pulmonary nodule is demonstrated. Pleural space: No effusion. Mediastinum: The right paratracheal lymph node previously measuring 1.4 cm now measures 7 mm. The pre viously seen precarinal lymph node measuring 1.1 cm now measures 9.8 mm. Previously seen AP window lymph node measuring 1 cm now measures 6 mm. Prevascular lymph node previously measuring 7.2 mm now m easures 6.9 mm. There is a small hiatal hernia. Axilla: No pathologically enlarged lymph nodes. ABDOMEN: Liver: There is persistent mild periportal edema. Gallbladder: Normal appearing. Pancreas: Normal. Adrenal glands: Normal. Spleen: Normal. Kidneys and ureters: There is stable bilateral renal cysts. There are stable nonobstructing renal nguyễn culi within both kidneys. No hydronephrosis is demonstrated. Vasculature: There are severe vascular calcifications seen involving the visualized vasculature. Lymph nodes:The enlarged portal caval lymph node is slightly smaller now measuring 2.4 cm were previo usly measured 2.9 cm. Previously seen periportal lymph node measuring 1.7 cm now measures 1.5 cm. An enlarged aortocaval lymph node previously measuring 1.5 cm now measures 1.1 cm. There is a mesente vel lymph node within the upper midline abdomen on image 67 of series 2 previously measuring 8 mm now measures 9 mm. An additional left upper quadrant mesenteric lymph node is slightly larger measuri ng 1.7 cm were previously measured 1.3 cm. An adjacent enlarged left upper quadrant mesentery lymph node now measures 7.5 mm previously measured 9 mm. Free fluid in abdomen:No free fluid is evident. PELVIS: Small and large bowel: There is prominent colonic diverticulosis. Mildly prominent left perirectal ly mph node measures 7 mm where previously it measured 7 mm. Appendix:Surgically absent Bladder: Decompressed Rectal and perirectal soft tissues:Normal. Reproductive structures: Surgically absent Free fluid in pelvis: No free fluid is evident. Lymphadenopathy pelvis: No lymphadenopathy is evident. Osseous structures: No acute osseous abnormality. No destructive osteolytic or osteoblastic lesion i s identified. There is scattered degenerative and osteoarthritic changes. Soft tissues:There is a right subclavian chest wall port. IMPRESSION: 1. Findings most consistent with response to therapy. A majority of the enlarged lymph nodes seen wit hin the mediastinum and upper abdomen have all decreased in size. 2 separate mesenteric lymph nodes within the upper abdomen detailed above have slightly increased in size. 2. Stable right lower lobe pulmonary nodule 3. Stable emphysema 4. Stable bilateral renal cysts and bilateral nephrolithiasis 5. Colonic diverticulosis
[2020-03-11] MEDS ORDERED: Iopamidol 370 76% 50 ML VIAL FS ONE (15:43)
[2020-03-11] MEDS ORDERED: Iopamidol 370 76% 100 ML VIAL ONE (15:43)
== END 2020-03-11 08:13 | disposition home or self-care (01) ==
LOC: CT 08:12
PROVIDERS: ATTEND Internal Medicine Hematology & Oncology
DX: C48.1 Malignant neoplasm of specified parts of peritoneum (principal); R91.1 Solitary pulmonary nodule; R59.0 Localized enlarged lymph nodes; J43.9 Emphysema, unspecified; N28.1 Cyst of kidney, acquired; N20.0 Calculus of kidney; K57.30 Diverticulosis of large intestine without perforation or abscess without bleeding
CPT/HCPCS: 71260; 74177; Q9967

== ENCOUNTER 2020-06-01 08:14 | Outpatient (CLI) | payer MEDICARE ==
[2020-06-01 10:56] LABS: Hemoglobin 15.8 g/dL (12.0-16.0); Mean Corpuscular HGB CONC 32.2 g/dL (32.0-36.0); Mean Corpuscular Hemoglobin 32.8 pg (27.0-31.0); Mean Platelet Volume 10.2 fL (7.4-10.4); Platelet Count 145 thou/uL (130-400); RBC Distribution Width 16.3 % (11.5-14.5); Red Blood Cell (RBC) Count 4.82 mill/uL (4.20-5.40); White Blood Cell (WBC) Count 8.3 thou/uL (4.8-10.8)
--- NOTE | 2020-06-01 13:50 | CT ---
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 COMPARISON: Prior CT of the chest, abdomen, and pelvis dated 03/11/2020. FINDINGS: CHEST: Scattered emphysema is stable-appearing. The 1 cm pulmonary nodule in the right lower lobe is stable . No new suspicious pulmonary nodule is evident. There are scattered coronary artery thoracic aorta calcifications. Right paratracheal lymph node previously measuring 7 mm now measures approximately 5 mm. Previously seen precarinal lymph node measuring 9.8 mm now measures 8 mm. Previously seen AP window lymph node measuring 6 mm now measures 5 mm. Previously seen prevascular lymph node is stable measuring 7 mm. ABDOMEN AND PELVIS: There is a small hiatal hernia. There is worsening mild ascites within the upper abdomen. There is worsening mesenteric lymphadenopathy. Some of the largest lymph nodes seen within the left mid abdomen on image 73 of series 3 measures 2.1 and 1.5 cm where previously it measured 1.6 and 0.7 cm. An additional enlarged lymph node in the upper abdominal mesentery on image 67 series 3 measures 1.2 cm where it previously measured 9 mm. There are new enlarged mesenteric lymph nodes in the righ t lower quadrant now measuring up to 11 mm. There is subtle punctate heterogeneity involving the sig moid mesentery that has slightly increased in prominence from the prior examination. The previously seen 7 mm nodular density seen adjacent to the distal sigmoid colon/rectum measures 8 mm. No overt n odularity is seen within the colonic gutters. There is no overt nodularity overlying the hepatic con tour or within Morison's pouch. Small splenules are present. There is a stable left renal cyst. There are stable small cysts involving the inferior pole of the r ight kidney. There is stable bilateral nephrolithiasis. Adrenal glands and pancreas appear within n ormal limits. The portocaval lymph node is slightly smaller in size measuring 4.3 x 2.2 cm where it previously emir ured 4.9 x 2.4 cm. The periportal lymph nodes are also slightly smaller measuring 1.3 cm where it pr eviously measured 1.5 cm and 1.5 cm where previously it measured 1.4 cm. There is edema surrounding the kwasi hepatis which is nonspecific. There is a small anterior abdominal wall hernia containing an unobstructed loop of transverse colon w hich is similar-appearing. There are moderate to severe calcifications involving the abdominopelvic vasculature. There is scattered degenerative and osteoarthritic change. No definite acute osseous abnormality is evident. IMPRESSION: 1. Findings of mixed response to therapy. There is continued decrease in size of the mediastina l and upper abdominal lymph nodes; however, there is worsening mesenteric lymphadenopathy and mesente vel nodularity, suspicious for peritoneal carcinomatosis. 2. Stable right lower lobe pulmonary nodule and scattered emphysema. 3. Stable bilateral renal cysts and bilateral nephrolithiasis. 4. Worsening ascites within the abdomen and pelvis. 5. Stable anterior abdominal wall containing unobstructed loop of large bowel. POS: BH
[2020-06-03 14:54] LABS: Albumin 2.9 g/dL (3.4-4.8)
[2020-06-03 14:55] LABS: Chloride 103 mmol/L (98-107); Potassium 3.7 mmol/L (3.5-5.1); Sodium 137 mmol/L (136-145)
[2020-06-03 14:56] LABS: Calcium 8.2 mg/dL (7.8-10.44); Glucose 183 mg/dL (83-110); Protein, Total 5.2 g/dL (6.0-8.3)
[2020-06-03 14:57] LABS: Globulin 2.3 g/dL (2.4-3.5)
[2020-06-03 14:58] LABS: Anion Gap 18 mmol/L (10-20); Carbon Dioxide 20 mmol/L (23-31)
[2020-06-03 14:59] LABS: Alkaline Phosphatase 66 U/L (40-110)
[2020-06-03 15:00] LABS: Calc. Creatinine Clearance 0 mL/min (70-130); Estimated GFR-MDRD 58
[2020-06-03 15:01] LABS: AST (SGOT) 33 U/L (5-34); BUN (Urea Nitrogen) 16 mg/dL (9.8-20.1)
[2020-06-03 15:02] LABS: ALT (SGPT) 24 U/L (8-55)
== END 2020-06-01 08:15 | disposition home or self-care (01) ==
LOC: SCSCT 08:14
PROVIDERS: ATTEND Internal Medicine Hematology & Oncology
DX: C48.1 Malignant neoplasm of specified parts of peritoneum (principal); R91.1 Solitary pulmonary nodule; N28.1 Cyst of kidney, acquired; N20.0 Calculus of kidney; R18.8 Other ascites; J43.9 Emphysema, unspecified
CPT/HCPCS: 71260; 74177; 80053; 84443; 85027; 86304

== ENCOUNTER 2020-06-06 09:18 | Inpatient (IN) | payer MEDICARE, OTHER ==
[2020-06-06] MEDS ORDERED: Ondansetron PF 4 MG/2 ML Vial ONE ×2 (09:31→11:06)
[2020-06-06] MEDS ORDERED: Ondansetron ODT 4 MG TAB ONE (09:31)
[2020-06-06] MEDS ORDERED: Nitroglycerin 2% Ointment 1 INCH/1 GM Packet ONE (09:35)
[2020-06-06] MEDS ORDERED: Labetalol HCl 100 MG/20 ML VIAL ONE (09:35)
[2020-06-06 09:57] LABS: #Neutrophils 4.6 thou/uL (1.40-6.50); %Basophils 0.6 % (0.0-1.0); %Eosinophils 0.2 % (0.0-10.0); %Lymphocytes 25.9 % (21.0-51.0); %Monocytes 13.3 % (0.0-10.0); Hemoglobin 16.2 g/dL (12.0-16.0); Mean Corpuscular HGB CONC 32.2 g/dL (32.0-36.0); Mean Platelet Volume 8.6 fL (7.4-10.4); Platelet Count 124 thou/uL (130-400); Red Blood Cell (RBC) Count 4.91 mill/uL (4.20-5.40); White Blood Cell (WBC) Count 7.6 thou/uL (4.8-10.8)
[2020-06-06 10:03] LABS: PTT 36.5 sec (22.9-36.1); Prothrombin Time 13.3 sec (12.0-14.7)
[2020-06-06] MEDS ORDERED: Iopamidol-370 76% 500 ML 1 ML ONE (10:18)
[2020-06-06 10:20] LABS: ALT (SGPT) 26 U/L (8-55); AST (SGOT) 35 U/L (5-34); Albumin 3.4 g/dL (3.4-4.8); Alkaline Phosphatase 81 U/L (40-110); Anion Gap 19 mmol/L (10-20); BUN (Urea Nitrogen) 11 mg/dL (9.8-20.1); Bilirubin, Total 2.5 mg/dL (0.2-1.2); CK (CPK) 31 U/L (29-168); Calc. Creatinine Clearance 0 mL/min (70-130); Calcium 8.6 mg/dL (7.8-10.44); Carbon Dioxide 21 mmol/L (23-31); Chloride 103 mmol/L (98-107); Estimated GFR-MDRD 63; Globulin 3.2 g/dL (2.4-3.5); Glucose 159 mg/dL (83-110); Potassium 3.8 mmol/L (3.5-5.1); Protein, Total 6.6 g/dL (6.0-8.3); Sodium 139 mmol/L (136-145)
--- NOTE | 2020-06-06 10:37 | RAD ---
CHEST 1 VIEW PORTABLE: HISTORY: Aphasia, weakness. COMPARISON: 04/09/2017. FINDINGS: Right central line and injection port. Heart size is normal. The lungs are clear. IMPRESSION: No significant acute intrathoracic disease. POS: OFF
--- NOTE | 2020-06-06 11:03 | CT ---
CT ANGIOGRAM HEAD WITH 3D RENDERING CT ANGIOGRAM NECK WITH 3D RENDERING: FINDINGS: CT ANGIOGRAM HEAD: Noncontrast study demonstrates bilateral atrophy and chronic white matter ischemic change. No focal mass or midline shift. No intra- or extraaxial hemorrhage. There is adequate opacification of the intracranial arteries. There is a somewhat smaller caliber ri ght vertebral which feeds mostly into the right PICA artery. No evidence for major branch occlusion. The right and left M1 segments appear within normal limits. No evidence for an intracranial aneury sm. The left A1 segment is slightly smaller in caliber than the right. IMPRESSION: 1. No evidence for an M1 segment occlusion. 2. No evidence for an intracranial aneurysm. 3. Somewhat smaller caliber right vertebral artery and left A1 segment. No evidence for a major branch occlusion. CT ANGIOGRAM NECK WITH 3D RENDERING: There are scattered areas of calcified plaque. There is a focal calcified plaque at the origin of th e left subclavian with evidence for mild to moderate stenosis. There is also extensive calcified james que at the level of the right carotid artery bifurcation including the common carotid and proximal ri ght ICA with approximately 50% stenosis of the proximal right ICA. On the left side, there is a mild , less than 50% stenosis of the left ICA. There is some sinus mucosal change in the right sphenoid s inus. IMPRESSION: 1. 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 2. Mild to moderate stenosis of the right carotid artery bifurcation and proximal internal carotid a rtery. 3. Mild, less than 50% stenosis of the origin of the left internal carotid artery. 4. Smaller caliber right vertebral compared to the left. POS: OFF
[2020-06-06] MEDS ORDERED: hydrALAZINE 20 MG/ML VIAL ONE (11:06)
[2020-06-06] MEDS ORDERED: Aspirin Chewable 81 MG TAB ONE ×2 (11:06)
[2020-06-06] MEDS ORDERED: Senokot S 8.6-50 MG TAB PO PRN (14:44)
[2020-06-06] MEDS ORDERED: Bisacodyl 10 MG SUPP PR PRN (14:44)
[2020-06-06] MEDS ORDERED: Guaifenesin DM 100-10/5 ML UDCUP PO PRN (14:44)
[2020-06-06] MEDS ORDERED: Calcium Carbonate 500 MG ChewTAB PO PRN (14:44)
[2020-06-06 14:47] LABS: CKMB 2.2 ng/mL (0-6.6)
[2020-06-06 15:21] LABS: Digoxin 0.59 ng/mL (0.8-2.0)
[2020-06-06] MEDS: Sodium Chloride 0.9% 1,000 ML IV SCH (15:30)
--- NOTE | 2020-06-06 15:30 | HP ---
REASON FOR ADMISSION: Possible TIA, confusion, dysarthria. HISTORY OF PRESENTING ILLNESS: Please note, majority of this history is obtained by talking to the patient's daughter, who is here at bedside as the patient does not recall what happened. She feels weak. Per daughter, she usually checks on her mom in the morning. She went to see her at around 8:15. Her bed lamp was still on and one of her pills which she takes early in the morning was on the floor. She also had incoherent speech, which was getting better off and on. As this went on for quite some time, she got concerned and called EMS. No complaints of fever, cough, or expectoration. No complaints of chest pain, palpitation, PND, or orthopnea. Ms. Dennison normally ambulates by herself inside the house. She has significant history of ovarian cancer, which is likely stage IV and is on maintenance carboplatin and Avastin. She skipped her chemotherapy last as Dr. De La Cruz thought she needs a break and was feeling weak. PAST MEDICAL AND SURGICAL HISTORY: History of ovarian cancer, stage IV, on carboplatin weekly and every 3 weeks gets Avastin with carboplatin; history of TX; chronic atrial fibrillation; has had nearly 5 stents for coronary artery disease; hypothyroidism with prior history of Graves disease; left ear likely sensorineural deafness; has had hysterectomy with cytoreductive surgery done for ovarian cancer; appendectomy; GERD; hypertension; dyslipidemia; left elbow repair; tonsillectomy; anxiety disorder. CURRENT MEDICATIONS: 1. Amlodipine 5 mg daily. 2. Magnesium oxide 400 mg daily. 3. Digoxin 0.125 mg daily. 4. Atorvastatin 40 mg p.o. daily. 5. Calcium one tablet daily. 6. Carvedilol 12.5 mg twice daily. 7. Eliquis 5 mg twice daily. 8. Levothyroxine 150 mcg p.o. daily. 9. Protonix 40 mg p.o. daily. ALLERGIES: ALLERGIC TO CODEINE, LEVAQUIN, AND ULTRAM. PERSONAL HISTORY: Quit smoking in 1984. Does not abuse alcohol or drugs. She lives with her daughter. The patient normally ambulates by herself inside the house. When she goes out, she uses a walker. There is history of coronary artery disease in mom and siblings. CODE STATUS: Do not attempt to resuscitate. This was discussed with the patient and her daughter, who is here at bedside, who is power of workers compensation attorney as well. REVIEW OF SYSTEMS: CONSTITUTIONAL: Negative for weight loss or gain, ability to conduct usual activities. SKIN: Negative for rash, itching. EYES: Negative for double vision, pain. ENT/MOUTH: Negative for nose bleeding, neck stiffness, pain, tenderness. CARDIOVASCULAR: Negative for palpitations, dyspnea on exertion, orthopnea. RESPIRATORY: Negative for shortness of breath, wheezing, cough, hemoptysis, fever or night sweats. GASTROINTESTINAL: Negative for poor appetite, abdominal pain, heartburn, nausea, vomiting, constipation, or diarrhea. GENITOURINARY: Negative for urgency, frequency, dysuria, nocturia. MUSCULOSKELETAL: Negative for pain, swelling. NEUROLOGIC/PSYCHIATRIC: Negative for anxiety, depression. ALLERGY/IMMUNOLOGIC: Negative for skin rash, bleeding tendency. PHYSICAL EXAMINATION: GENERAL: The patient is an 85-year-old female, who is currently not in any acute distress. VITAL SIGNS: Blood pressure 150/84, pulse 90 per minute, respiratory rate 18 per minute, temperature 97.9 degrees Fahrenheit, saturating 98% on room air. NECK: Supple. No elevated JVD. HEENT: Eyes; extraocular muscles are intact. Pupils are reacting to light. Oral cavity, mucous membranes are dry. No exudates or congestion. CARDIOVASCULAR SYSTEM: S1 and S2 heard, regular rhythm. RESPIRATORY SYSTEM: Air entry 1+ bilateral. No rales or rhonchi. ABDOMEN: Soft. Bowel sounds heard. No tenderness, rigidity, or guarding. EXTREMITIES: No peripheral edema or calf tenderness. There is minor petechia in the calf area. CENTRAL NERVOUS SYSTEM: No gross focal motor deficits noted. Strength is 5/5 in all 4 extremities. The patient is right handed. Cranial nerves are grossly intact. PSYCHIATRIC SYSTEM: The patient is anxious, otherwise no hallucinations or delusions. LABORATORY DATA: Serum bicarb is 21, BUN 11, creatinine 0.8, serum glucose 159, total bilirubin 2.5, AST 35, ALT 26, alkaline phosphatase 81, albumin is 3.4. Hemoglobin and hematocrit are 16 and 50, platelet count 124, MCV is 102, white count of 7.6 with 60% neutrophils. PT/INR within normal limits, PTT is 36. EKG done shows sinus rhythm at 76 beats per minute. There are also EKG changes of prior inferolateral TX with current ST depression seen, frequent PVCs are seen. CLINICAL IMPRESSION AND PLAN: The patient will be under observation on stroke unit for dysarthria, confusion, which is off and on per daughter. The patient is right-handed person and is moving all 4 extremities. She also has extreme anxiety at present. She is on full-dose Eliquis at home for history of prior atrial fibrillation. We will add aspirin and continue her Lipitor, carvedilol, digoxin, Protonix, Synthroid, and magnesium oxide. She will be on normal saline at 100 mL per hour. The patient has nearly 3 to 4 episodes of loose diarrhea at home and she is also having low magnesium, which has been serially checked by her primary care physician, Dr. Knapp. If her diarrhea gets worse, this magnesium oxide will be discontinued. We will obtain stool studies, blood and urine cultures in view of the patient being immunocompromised. We will also obtain digoxin levels in view of frequent PVCs. We will obtain consultation with Dr. Kuhn. Stroke workup including echo, MRI will be obtained. PT/OT and Speech evaluations will be requested on the floor. We will continue to closely monitor her on the stroke unit. Job ID: [id number]
[2020-06-06 16:19] VITALS: BMI 29.1
[2020-06-06] MEDS: Carvedilol 6.25 MG TAB PO SCH (20:01)
[2020-06-06] MEDS: Atorvastatin Calcium 40 MG TAB PO SCH (20:01)
[2020-06-06] MEDS ORDERED: Apixaban 5 MG TAB PO SCH (21:00)
[2020-06-06] MEDS ORDERED: Famotidine 20 MG TAB PO SCH (21:00)
[2020-06-06] MEDS: ALPRAZolam 0.25 MG TAB PO PRN (22:22)
[2020-06-06 22:43] LABS: Bacteria/HPF None Seen HPF (None Seen); Bilirubin Negative (Negative); Blood, Urine Trace (Negative); Clarity Clear (Clear); Glucose, Urine (Dipstick) Normal (Negative); Ketone, Urine Negative (Negative); Leukocyte Negative Leu/uL (Negative); Nitrite Negative (Negative); Protein, Urine (Dipstick) 300 mg/dL (Neg-Trace); RBC/HPF 0-3 HPF (0-3); Specific Gravity, Urine 1.032 (1.002-1.036); Urobilinogen Normal mg/dL (Less than 2)
[2020-06-06 22:45] LABS: Urine Culture Reflex No No
[2020-06-06 22:53] LABS: Anion Gap 17 mmol/L (10-20); BUN (Urea Nitrogen) 10 mg/dL (9.8-20.1); Calc. Creatinine Clearance 62 mL/min (70-130); Calcium 7.5 mg/dL (7.8-10.44); Carbon Dioxide 18 mmol/L (23-31); Chloride 106 mmol/L (98-107); Estimated GFR-MDRD 73; Glucose 94 mg/dL (83-110); Phosphorus 2.5 mg/dL (2.3-4.7); Potassium 3.4 mmol/L (3.5-5.1); Sodium 138 mmol/L (136-145)
[2020-06-06] MEDS ORDERED: Magnesium Sulfate 4 GM in Sodium Chloride 0.9% 250 ML 250 ML IVPB SCH (23:45)
[2020-06-06] MEDS ORDERED: Potassium Chloride 20 MEQ TAB PO SCH (23:45)
[2020-06-07] MEDS: Sodium Chloride 0.9% 1,000 ML IV SCH (03:21)
[2020-06-07] MEDS: Levothyroxine 150 MCG TAB PO SCH (05:42)
[2020-06-07 05:47] LABS: Anion Gap 12 mmol/L (10-20); BUN (Urea Nitrogen) 9 mg/dL (9.8-20.1); Calc. Creatinine Clearance 64 mL/min (70-130); Calcium 7.4 mg/dL (7.8-10.44); Carbon Dioxide 19 mmol/L (23-31); Cardiac Risk 3.4 (Less than 4.5); Chloride 108 mmol/L (98-107); Cholesterol 127 mg/dl (< 200 Desired); Estimated GFR-MDRD 75; Glucose 84 mg/dL (83-110); HDL Cholesterol 37 mg/dL (>60 Neg Risk); LDL Cholesterol, Calculated 54 mg/dL; Magnesium 2.4 mg/dL (1.6-2.6); Potassium 4.1 mmol/L (3.5-5.1); Sodium 135 mmol/L (136-145); Triglycerides 181 mg/dL (Less than 150)
[2020-06-07 07:55] LABS: Anisocytosis SLIGHT = 6-15 cells (100X) (0-5/hpf); Eosinophils 4 % (0-10); Hemoglobin 13.2 g/dL (12.0-16.0); Lymphocytes 29 % (21-51); MDiff Complete? YES; Mean Corpuscular HGB CONC 32.6 g/dL (32.0-36.0); Mean Corpuscular Hemoglobin 34.1 pg (27.0-31.0); Mean Platelet Volume 8.3 fL (7.4-10.4); Monocytes 23 % (0-10); Neutrophil 44 % (42-75); Platelet Count 83 thou/uL (130-400); Platelet Morphology Comment Appears Decreased; RBC Distribution Width 16.1 % (11.5-14.5); Red Blood Cell (RBC) Count 3.88 mill/uL (4.20-5.40); Vacuoles SLIGHT; White Blood Cell (WBC) Count 5.7 thou/uL (4.8-10.8)
[2020-06-07] MEDS: Amlodipine 10 MG TAB PO SCH (09:06)
[2020-06-07] MEDS: Carvedilol 6.25 MG TAB PO SCH ×2 (09:07→20:11)
[2020-06-07] MEDS: Digoxin 0.125 MG TAB PO SCH (09:07)
[2020-06-07] MEDS: Lactinex Tablet PO SCH (09:08)
[2020-06-07] MEDS: Apixaban 2.5 MG TAB PO SCH ×2 (09:08→20:11)
[2020-06-07] MEDS: Magnesium Oxide 400 MG TAB PO SCH (09:08)
[2020-06-07] MEDS: Aspirin 81 mg Enteric Coated Tablet PO SCH (09:08)
--- NOTE | 2020-06-07 11:36 | CON ---
DATE OF CONSULTATION: 06/07/2020 CONSULTING PHYSICIAN: Hospitalist Service. IMPRESSION: 1. Transient ischemic attack versus stroke with expressive aphasia. 2. Ovarian cancer with peritoneal metastasis. 3. She is currently on full-dose anticoagulation. PLAN: Add aspirin 81 mg per day. HISTORY OF PRESENT ILLNESS: Ms. Dennison is an 85-year-old woman with a past history of atrial fibrillation, who is followed by Dr. Vines. She has a history of pancreatic cancer with mets to the peritoneum, is being treated with chemotherapy by Dr. De La Cruz. Her daughter noted acute onset of expressive aphasia. Her speech was essentially nonsensical. This remained present throughout the day. There did not appear to be any facial weakness or lateralized weakness or numbness. She brought her into the emergency room. She had a CT angiogram of the head, which did not show any stenosis of the intracranial vessels. There was less than 50% stenosis of the left internal carotid artery. There was some mild stenosis in the right carotid bifurcation present. Her symptoms have subsequently cleared up by the late evening. She is back to her baseline today. PAST MEDICAL HISTORY: As noted above including myocardial infarction, hypothyroidism, hypertension, hyperlipidemia. MEDICATIONS: List was reviewed which includes a statin and Eliquis. ALLERGIES: TO CODEINE, LEVAQUIN, AND ULTRAM. SOCIAL HISTORY: She is a prior smoker, quit in 1984. There is no alcohol or drug use. FAMILY HISTORY: Noncontributory. REVIEW OF SYSTEMS: Ten-system review of systems is otherwise unremarkable. PHYSICAL EXAMINATION: VITAL SIGNS: Blood pressure 150/84, pulse 90, respirations 18, and temperature 97.9. HEENT: Pupils are equal and reactive. Oropharynx is clear. CARDIOVASCULAR: Regular rate and rhythm. ABDOMEN: Nontender. EXTREMITIES: No edema. NEUROLOGIC: She is alert and appropriate. Her speech is fluent and clear. Cranial nerves were intact. She has good strength bilaterally. LABORATORY STUDIES: Reviewed. IMAGING STUDIES: EKG showed a prior inferolateral myocardial infarction with ST-segment depression and frequent PVCs. SUMMARY: This is an elderly lady with transient expressive aphasia, who is on current full-dose Eliquis. She has no significant extracranial vascular disease. Agree with the addition of aspirin. There is little else to offer otherwise. Job ID: [id number]
--- NOTE | 2020-06-07 12:22 | MRI ---
BRAIN MRI WITHOUT IV CONTRAST: HISTORY: TIA. FINDINGS: Motion artifact lowers the sensitivity of this study. No evidence for acute infarct. Atrophy and ch ronic white matter ischemic change. Right-sided sphenoid sinus mucosal disease. No focal mass or mi dline shift. No intra- or extraaxial hemorrhage. Scattered chronic white matter ischemic change. IMPRESSION: No evidence for acute infarct. Right sphenoid sinus mucosal disease. No mass or hemorrhage. POS: OFF
[2020-06-07 12:23] LABS: SARS-CoV-2 MS2 Positive; SARS-CoV-2 N Gene Negative; SARS-CoV-2 S Gene Negative; SARS-CoV-2 by NAA Not Detected (NotDetected); SARS-CoV-2 orf1ab Negative
--- NOTE | 2020-06-07 14:35 | PDOC.HOSPP ---
- Subjective Encounter Date: 06/07/20 Encounter Time: 10:00 Subjective: speaking fluently, no word finding trouble daughter at bedside no chest pain or palp or fever - Objective Vital Signs & Weight: Vital Signs (12 hours) Temp Pulse Resp BP BP Pulse Ox 06/07/20 11:34 98.1 F 65 16 134/84 96 06/07/20 09:07 70 06/07/20 09:06 187/83 H 06/07/20 07:34 97.6 F 80 20 187/83 H 97 06/07/20 04:00 98.7 F 64 16 146/78 H 96 Weight Weight 164 lb 6.4 oz I&O: 06/06/20 06/07/20 06/08/20 06:59 06:59 06:59 Intake Total 1850 120 Balance 1850 120 Result Diagrams: 06/07/20 06:50 06/07/20 04:47 Hospitalist ROS - Medication Medications: Active Medications Generic Name Dose Route Start Last Admin Trade Name Freq PRN Reason Stop Dose Admin Acidophilus 1 tab 06/07/20 09:00 06/07/20 09:08 Lactinex Tablet PO 1 tab DAILY RUBEN Administration Alprazolam 0.125 mg 06/06/20 14:44 06/06/20 22:22 Alprazolam 0.25 Mg Tab PO 0.125 mg DAILYPRN PRN Administration Anxiety Amlodipine Besylate 10 mg 06/07/20 09:00 06/07/20 09:06 Amlodipine 10 Mg Tab PO 10 mg DAILY RUBEN Administration Apixaban 2.5 mg 06/07/20 09:00 06/07/20 09:08 Apixaban 2.5 Mg Tab PO 2.5 mg BID RUBEN Administration Aspirin 81 mg 06/07/20 09:00 06/07/20 09:08 Aspirin 81 Mg Enteric Coated Tablet PO 81 mg DAILY RUBEN Administration Atorvastatin Calcium 40 mg 06/06/20 21:00 06/06/20 20:01 Atorvastatin Calcium 40 Mg Tab PO 40 mg HS RUBEN Administration Carvedilol 12.5 mg 06/06/20 21:00 06/07/20 09:07 Carvedilol 6.25 Mg Tab PO 12.5 mg BID RUBEN Administration Digoxin 0.125 mg 06/07/20 09:00 06/07/20 09:07 Digoxin 0.125 Mg Tab PO 0.125 mg QAM RUBEN Administration Levothyroxine Sodium 150 mcg 06/07/20 06:00 06/07/20 05:42 Levothyroxine 150 Mcg Tab PO 150 mcg 0600 RUBEN Administration Magnesium Oxide 400 mg 06/07/20 09:00 06/07/20 09:08 Magnesium Oxide 400 Mg Tab PO 400 mg DAILY RUBEN Administration Pantoprazole Sodium 40 mg 06/07/20 09:00 06/07/20 09:08 Pantoprazole 40 Mg Tab PO 40 mg DAILY RUBEN Administration - Exam General Appearance: awake alert Eye: PERRL, anicteric sclera ENT: no oropharyngeal lesions, moist mucosa Neck: supple, no JVD Heart: no murmur, irregular Respiratory: no wheezes, no rales Gastrointestinal: soft, non-tender, non-distended, normal bowel sounds Extremities: no cyanosis, no edema Neurological: cranial nerve grossly intact, no focal deficits Psychiatric: A&O x 3 Hosp A/P (1) Dehydration, moderate Code(s): E86.0 - DEHYDRATION Status: Acute (2) Afib Code(s): I48.91 - UNSPECIFIED ATRIAL FIBRILLATION Status: Chronic Qualifiers: Atrial fibrillation type: paroxysmal Qualified Code(s): I48.0 - Paroxysmal atrial fibrillation (3) Acute metabolic encephalopathy Code(s): G93.41 - METABOLIC ENCEPHALOPATHY Status: Resolved (4) HTN (hypertension) Code(s): I10 - ESSENTIAL (PRIMARY) HYPERTENSION Status: Chronic Qualifiers: Hypertension type: essential hypertension Qualified Code(s): I10 - Essential (primary) hypertension (5) Dyslipidemia Code(s): E78.5 - HYPERLIPIDEMIA, UNSPECIFIED Status: Chronic (6) Hypothyroidism Code(s): E03.9 - HYPOTHYROIDISM, UNSPECIFIED Status: Chronic Qualifiers: Hypothyroidism type: unspecified Qualified Code(s): E03.9 - Hypothyroidism, unspecified (7) Diarrhea Code(s): R19.7 - DIARRHEA, UNSPECIFIED Status: Resolved Qualifiers: Diarrhea type: unspecified type Qualified Code(s): R19.7 - Diarrhea, unspecified (8) TIA (transient ischemic attack) Status: Resolved - Plan has st-t wave changes on ekg, freq pvc's, afib, 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 PT to mobilize, will need home health on dc dc plan in am if cleared by cardiology d/w daughter at bedside
[2020-06-07] MEDS ORDERED: Loperamide HCl 2 MG CAP PO SCH (17:15)
[2020-06-07] MEDS: Atorvastatin Calcium 40 MG TAB PO SCH (20:11)
[2020-06-07] MEDS: ALPRAZolam 0.25 MG TAB PO PRN (21:27)
[2020-06-08 04:46] LABS: Anion Gap 15 mmol/L (10-20); BUN (Urea Nitrogen) 11 mg/dL (9.8-20.1); Calc. Creatinine Clearance 58 mL/min (70-130); Calcium 7.5 mg/dL (7.8-10.44); Carbon Dioxide 17 mmol/L (23-31); Chloride 108 mmol/L (98-107); Estimated GFR-MDRD 68; Glucose 94 mg/dL (83-110); Magnesium 1.8 mg/dL (1.6-2.6); Potassium 3.6 mmol/L (3.5-5.1); Sodium 136 mmol/L (136-145)
[2020-06-08] MEDS: Levothyroxine 150 MCG TAB PO SCH (05:13)
[2020-06-08] MEDS: Lactinex Tablet PO SCH (09:28)
[2020-06-08] MEDS: Carvedilol 6.25 MG TAB PO SCH (09:29)
[2020-06-08] MEDS: Apixaban 2.5 MG TAB PO SCH (09:30)
[2020-06-08] MEDS: Aspirin 81 mg Enteric Coated Tablet PO SCH (09:30)
[2020-06-08] MEDS: Amlodipine 10 MG TAB PO SCH (09:30)
[2020-06-08] MEDS: Digoxin 0.125 MG TAB PO SCH (09:31)
[2020-06-08] MEDS: Magnesium Oxide 400 MG TAB PO SCH (09:31)
--- NOTE | 2020-06-08 10:47 | PDOC.HOSPP ---
- Subjective Encounter Date: 06/08/20 Encounter Time: 10:00 Subjective: no weakness or speech issues feels good, no sob or palp - Objective Vital Signs & Weight: Vital Signs (12 hours) Temp Pulse Resp BP BP BP Pulse Ox 06/08/20 10:25 98.5 F 97 06/08/20 09:31 74 06/08/20 09:30 74 179/79 H 06/08/20 09:29 179/79 H 06/08/20 08:00 98.5 F 15 97 06/08/20 05:16 179/79 H 06/08/20 03:05 98.4 F 70 20 93 L 06/08/20 00:00 97.9 F 65 19 154/71 H 98 Weight Admit Weight 164 lb 6.4 oz Weight 164 lb 6.4 oz I&O: 06/07/20 06/08/20 06/09/20 06:59 06:59 06:59 Intake Total 1850 360 Balance 1850 360 Result Diagrams: 06/07/20 06:50 06/08/20 04:25 Hospitalist ROS - Medication Medications: Active Medications Generic Name Dose Route Start Last Admin Trade Name Freq PRN Reason Stop Dose Admin Acidophilus 1 tab 06/07/20 09:00 06/08/20 09:28 Lactinex Tablet PO 1 tab DAILY RUBEN Administration Alprazolam 0.125 mg 06/06/20 14:44 06/07/20 21:27 Alprazolam 0.25 Mg Tab PO 0.125 mg DAILYPRN PRN Administration Anxiety Amlodipine Besylate 10 mg 06/07/20 09:00 06/08/20 09:30 Amlodipine 10 Mg Tab PO 10 mg DAILY RUBEN Administration Apixaban 2.5 mg 06/07/20 09:00 06/08/20 09:30 Apixaban 2.5 Mg Tab PO 2.5 mg BID RUBEN Administration Aspirin 81 mg 06/07/20 09:00 06/08/20 09:30 Aspirin 81 Mg Enteric Coated Tablet PO 81 mg DAILY RUBEN Administration Atorvastatin Calcium 40 mg 06/06/20 21:00 06/07/20 20:11 Atorvastatin Calcium 40 Mg Tab PO 40 mg HS RUBEN Administration Carvedilol 12.5 mg 06/06/20 21:00 06/08/20 09:29 Carvedilol 6.25 Mg Tab PO 12.5 mg BID RUBEN Administration Digoxin 0.125 mg 06/07/20 09:00 06/08/20 09:31 Digoxin 0.125 Mg Tab PO 0.125 mg QAM RUBEN Administration Levothyroxine Sodium 150 mcg 06/07/20 06:00 06/08/20 05:13 Levothyroxine 150 Mcg Tab PO 150 mcg 0600 RUBEN Administration Magnesium Oxide 400 mg 06/07/20 09:00 06/08/20 09:31 Magnesium Oxide 400 Mg Tab PO 400 mg DAILY RUBEN Administration Pantoprazole Sodium 40 mg 06/07/20 09:00 06/08/20 09:30 Pantoprazole 40 Mg Tab PO 40 mg DAILY RUBEN Administration Sodium Chloride 10 ml 06/06/20 14:44 06/07/20 20:11 Flush - Normal Saline 10 Ml Syringe IVF 10 ml PRN PRN Administration Saline Flush - Exam General Appearance: awake alert Eye: PERRL, anicteric sclera ENT: no oropharyngeal lesions, moist mucosa Neck: supple, no JVD Heart: RRR, no murmur Respiratory: no wheezes, no rales Gastrointestinal: soft, non-tender, non-distended, normal bowel sounds Extremities: no cyanosis, no edema Neurological: cranial nerve grossly intact, no focal deficits Psychiatric: A&O x 3 Hosp A/P (1) Dehydration, moderate Code(s): E86.0 - DEHYDRATION Status: Resolved (2) Afib Code(s): I48.91 - UNSPECIFIED ATRIAL FIBRILLATION Status: Chronic Qualifiers: Atrial fibrillation type: paroxysmal Qualified Code(s): I48.0 - Paroxysmal atrial fibrillation (3) Acute metabolic encephalopathy Code(s): G93.41 - METABOLIC ENCEPHALOPATHY Status: Resolved (4) HTN (hypertension) Code(s): I10 - ESSENTIAL (PRIMARY) HYPERTENSION Status: Chronic Qualifiers: Hypertension type: essential hypertension Qualified Code(s): I10 - Es sential (primary) hypertension (5) Dyslipidemia Code(s): E78.5 - HYPERLIPIDEMIA, UNSPECIFIED Status: Chronic (6) Hypothyroidism Code(s): E03.9 - HYPOTHYROIDISM, UNSPECIFIED Status: Chronic Qualifiers: Hypothyroidism type: unspecified Qualified Code(s): E03.9 - Hypothyroidism, unspecified (7) Diarrhea Code(s): R19.7 - DIARRHEA, UNSPECIFIED Status: Resolved Qualifiers: Diarrhea type: unspecified type Qualified Code(s): R19.7 - Diarrhea, unspecified (8) TIA (transient ischemic attack) Status: Resolved - Plan has st-t wave changes on ekg, freq pvc's, p.afib, 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 PT to mobilize, will need home health on dc dc plan in am if cleared by cardiology d/w daughter at bedside
[2020-06-08] MEDS ORDERED: Apixaban 2.5 MG TAB PO SCH (11:45)
--- NOTE | 2020-06-08 13:09 | PDOC.NEUPN ---
- Subjective Encounter Date: 06/08/20 Subjective: Patient feels better and denies any new complaints. Daughter at bedside. - Objective Vital Signs & Weight: Vital Signs (12 hours) Temp Pulse Resp BP BP BP Pulse Ox 06/08/20 12:00 97.9 F 70 28 H 171/77 H 97 06/08/20 10:25 98.5 F 97 06/08/20 09:31 74 06/08/20 09:30 74 179/79 H 06/08/20 09:29 179/79 H 06/08/20 08:00 98.5 F 15 97 06/08/20 05:16 179/79 H 06/08/20 03:05 98.4 F 70 20 93 L Weight Admit Weight 164 lb 6.4 oz Weight 164 lb 6.4 oz I&O: 06/07/20 06/08/20 06/09/20 06:59 06:59 06:59 Intake Total 1850 360 Balance 1850 360 Result Diagrams: 06/07/20 06:50 06/08/20 04:25 Radiology Reviewed by me: Yes EKG Reviewed by me: Yes ROS - Review of Systems Constitutional: denies: fever, chills, sweats, weakness, malaise, other ENT: denies: ear pain, ear discharge, nose pain, nose discharge, nose congestion, mouth pain, mouth swelling, throat pain, throat swelling, other Respiratory: denies: cough, dry, shortness of breath, hemoptysis, SOB with excertion, pleuritic pain, sputum, wheezing, other Cardiovascular: denies: no pertinent history, AFIB, CAD, CHF, HTN, AR, Syncope, Hyperlipidemia, Mitral valve stenosis, Aortic stenosis, Valve insufficiency, Pulmonary hypertension, Other Gastrointestinal: denies: nausea, vomiting, abdominal pain, diarrhea, constipation, melena, hematochezia, other Genitourinary: denies: dysuria, frequency, incontinence, hematuria, retention, other Musculoskeletal: denies: neck pain, shoulder pain, arm pain, back pain, hand pain, leg pain, foot pain, other Skin: denies: rash, lesions, mendez, bruising, other Neurological: denies: weakness, numbness, incoordination, change in speech, confusion, seizures, other - Medication Medications: Active Medications Generic Name Dose Route Start Last Admin Trade Name Freq PRN Reason Stop Dose Admin Acidophilus 1 tab 06/07/20 09:00 06/08/20 09:28 Lactinex Tablet PO 1 tab DAILY RUBEN Administration Alprazolam 0.125 mg 06/06/20 14:44 06/07/20 21:27 Alprazolam 0.25 Mg Tab PO 0.125 mg DAILYPRN PRN Administration Anxiety Amlodipine Besylate 10 mg 06/07/20 09:00 06/08/20 09:30 Amlodipine 10 Mg Tab PO 10 mg DAILY RUBEN Administration Apixaban 2.5 mg 06/08/20 11:45 06/08/20 12:31 Apixaban 2.5 Mg Tab PO 06/08/20 14:00 2.5 mg NOW RUBEN Administration Aspirin 81 mg 06/07/20 09:00 06/08/20 09:30 Aspirin 81 Mg Enteric Coated Tablet PO 81 mg DAILY RUBEN Administration Atorvastatin Calcium 40 mg 06/06/20 21:00 06/07/20 20:11 Atorvastatin Calcium 40 Mg Tab PO 40 mg HS RUBEN Administration Carvedilol 12.5 mg 06/06/20 21:00 06/08/20 09:29 Carvedilol 6.25 Mg Tab PO 12.5 mg BID RUBEN Administration Digoxin 0.125 mg 06/07/20 09:00 06/08/20 09:31 Digoxin 0.125 Mg Tab PO 0.125 mg QAM RUBEN Administration Levothyroxine Sodium 150 mcg 06/07/20 06:00 06/08/20 05:13 Levothyroxine 150 Mcg Tab PO 150 mcg 0600 RUBEN Administration Magnesium Oxide 400 mg 06/07/20 09:00 06/08/20 09:31 Magnesium Oxide 400 Mg Tab PO 400 mg DAILY RUBEN Administration Pantoprazole Sodium 40 mg 06/07/20 09:00 06/08/20 09:30 Pantoprazole 40 Mg Tab PO 40 mg DAILY RUBEN Administration Sodium Chloride 10 ml 06/06/20 14:44 06/07/20 20:11 Flush - Normal Saline 10 Ml Syringe IVF 10 ml PRN PRN Administration Saline Flush - Exam General Appearance: awake alert Eye: PERRL ENT: normocephalic atraumatic Neck: supple Respiratory: CTAB Cardiovascular: RRR Gastrointestinal: soft Extremities: no cyanosis Skin: normal turgor Neurological: CN's grossly intact, no focal deficits Musculoskeletal: normal tone PSYCH: normal affect, normal behavior, A&O x 3 Results - Labs Result Diagrams: 06/07/20 06:50 06/08/20 04:25 Lab results: WBC 5.7 thou/uL (4.8-10.8) 06/07/20 06:50 Hgb 13.2 g/dL (12.0-16.0) 06/07/20 06:50 Hct 40.6 % (36.0-47.0) 06/07/20 06:50 MCV 105.0 fL (78.0-98.0) H 06/07/20 06:50 Plt Count 83 thou/uL (130-400) L 06/07/20 06:50 Neutrophils % 60.0 % (42.0-75.0) 06/06/20 09:36 Sodium 136 mmol/L (136-145) 06/08/20 04:25 Potassium 3.6 mmol/L (3.5-5.1) 06/08/20 04:25 Chloride 108 mmol/L (98-107) H 06/08/20 04:25 Carbon Dioxide 17 mmol/L (23-31) L 06/08/20 04:25 BUN 11 mg/dL (9.8-20.1) 06/08/20 04:25 Creatinine 0.80 mg/dL (0.6-1.1) 06/08/20 04:25 Glucose 94 mg/dL (83-110) 06/08/20 04:25 Calcium 7.5 mg/dL (7.8-10.44) L 06/08/20 04:25 Total Bilirubin 2.5 mg/dL (0.2-1.2) H 06/06/20 09:36 AST 35 U/L (5-34) H 06/06/20 09:36 ALT 26 U/L (8-55) 06/06/20 09:36 Alkaline Phosphatase 81 U/L (40-110) 06/06/20 09:36 Creatine Kinase 31 U/L (29-168) 06/06/20 09:36 CK-MB (CK-2) 2.2 ng/mL (0-6.6) 06/06/20 13:51 Troponin I 0.139 ng/mL (< 0.028) H 06/06/20 13:51 Serum Total Protein 6.6 g/dL (6.0-8.3) 06/06/20 09:36 Albumin 3.4 g/dL (3.4-4.8) 06/06/20 09:36 Urine Ketones Negative mg/dL (Negative) 06/06/20 22:25 Urine Blood Trace (Negative) A 06/06/20 22:25 Urine Nitrite Negative (Negative) 06/06/20 22:25 Ur Leukocyte Esterase Negative Yael/uL (Negative) 06/06/20 22:25 Urine RBC 0-3 HPF (0-3) 06/06/20 22:25 Urine WBC 7-10 HPF (0-3) A 06/06/20 22:25 Ur Squamous Epith Cells 7-10 HPF (0-3) A 06/06/20 22:25 Urine Bacteria None Seen HPF (None Seen) 06/06/20 22:25 - Radiology Interpretation MRI - head Additional Comment: Negative for acute intracranial pathology. PN A/P (1) TIA (transient ischemic attack) Status: Resolved (2) Afib Code(s): I48.91 - UNSPECIFIED ATRIAL FIBRILLATION Status: Chronic Qualifiers: Atrial fibrillation type: paroxysmal Qualified Code(s): I48.0 - Paroxysmal atrial fibrillation (3) Dyslipidemia Code(s): E78.5 - HYPERLIPIDEMIA, UNSPECIFIED Status: Chronic (4) HTN (hypertension) Code(s): I10 - ESSENTIAL (PRIMARY) HYPERTENSION Status: Chronic Qualifiers: Hypertension type: essential hypertension Qualified Code(s): I10 - Essential (primary) hypertension (5) Hypothyroidism Code(s): E03.9 - HYPOTHYROIDISM, UNSPECIFIED Status: Chronic Qualifiers: Hypothyroidism type: unspecified Qualified Code(s): E03.9 - Hypothyroidism, unspecified (6) Acute metabolic encephalopathy Code(s): G93.41 - METABOLIC ENCEPHALOPATHY Status: Resolved (7) Dehydration, moderate Code(s): E86.0 - DEHYDRATION Status: Resolved - Plan Daily Plan: plan discussed w/ family, PT/OT, speech therapy, DVT proph w/SCDs 85 year old consulted for confusion but now back to her baseline. AMS seems to be multifactorial. MRI brain reviewed and was negative for acute intracranial pathology. Continue asa and eliquis for secondary stroke prevention. Patient has atrial fibrillation- cardiology on board. Continue home medications. Strict control of BP and BG. PT/OT/SPEECH Continue medical management per primary team. Case discussed with patient, daughter and during MDR rounds
[2020-06-08 15:19] VITALS: TEMP 98.1
[2020-06-08] MEDS ORDERED: Losartan 25 MG TAB PO SCH (15:45)
[2020-06-08 16:43] VITALS: BP 155/84
[2020-06-08] MEDS ORDERED: Apixaban 5 MG TAB PO SCH (21:00)
--- NOTE | 2020-06-09 06:38 | CON ---
DATE OF CONSULTATION: PRIMARY CARE DOCTOR: Dr Francisco Knapp. PRIMARY GAS METER READER: Ade Vines MD. REASON FOR CARDIOLOGY CONSULT: EKG change, frequent PVC and atrial fibrillation. HISTORY OF PRESENT ILLNESS: Ms. Dennison is a very pleasant 85-year-old female with a significant history of stage IV ovarian cancer since April 2017, hypertension, hyperlipidemia, TIA in August 2017 and chronic persistent atrial fibrillation with cardioversion in 2016 twice. The patient has been followed up with Dr. Vines for chronic atrial fibrillation and chronic fatigue. The patient had echocardiogram done in April 2020 with EF 55% to 60%, mild to moderate thickening of the left ventricle wall, probable diastolic dysfunction, trace mitral valve regurgitation, mild to moderate tricuspid regurgitation, and mild elevation of VSP and mild pulmonary regurgitation. The patient's reason for coming to the emergency department was patient started having difficulty speaking on Monday morning. The patient was transferred to emergency department for further evaluation and treatment. At this moment, the patient denied any difficulty in movement of the lower extremities, dysphagia, and also any other cardiac complaints. The patient has had diarrhea for at least 3 weeks, and the patient with the diagnosis of possible TIA and dehydration. C diff was negative. However, she continued having no energy at this moment. She just finished 3 weeks of chemotherapy. She is going to be off chemotherapy for 3 weeks. The patient's magnesium level on June 06 was 1.0 and the patient received magnesium IV. The patient's magnesium level today was 1.8. The patient continued taking Eliquis 5 mg twice a day at home without any disturbing. Even during the episode of TIA, patient denied chest pain, heaviness, tightness, shortness of breath, or any other cardiac complaints. PAST MEDICAL HISTORY: Persistent atrial fibrillation, TIA in the past in 2016, stage IV ovarian cancer since April 2017, hypertension, hyperlipidemia, CAD and 5 stents in 2002. PAST SURGICAL HISTORY: Stent placement x5 in 2002, total hysterectomy, cardioversion twice in 2016. FAMILY HISTORY: Noncontributory. SOCIAL HISTORY: She is living with her daughter. She quit smoking in 1957. She denies EtOH or drug abuse. ALLERGIES: SHE IS ALLERGIC TO CODEINE, LEVOFLOXACIN, NITROGLYCERIN, TRAMADOL. HOME MEDICATIONS: 1. Atorvastatin 20 mg once a day. 2. Eliquis 5 mg twice a day. 3. Multivitamin once a day. 4. Probiotic once a day. 5. Calcium with vitamin D3 once a day. 6. Xanax 0.125 mg once a day as needed. 7. Carvedilol 12.5 mg twice a day. 8. Protonix 40 mg once a day. 9. Prochlorperazine 10 mg every 4 hours as needed. 10. Zofran 8 mg p.o. three times a day as needed. 11. Morphine ER 15 mg 1 to 2 tablets every 6 hours as needed. 12. Milton 5/325 mg 1 to 2 tablets every 6 hours as needed. 13. Furosemide 40 mg once a day. 14. Digoxin 0.125 mg once a day. 15. Promethazine 25 mg every 6 hours as needed. 16. Amlodipine 10 mg once a day. 17. Magnesium 400 mg twice a day. 18. Colestipol 1 g every other day. 19. Levothyroxine 150 mcg once a day. 20. Biotin 1 mg once a day. REVIEW OF SYSTEMS: 12-point review of systems negative unless otherwise mentioned in the HPI. LABORATORY DATA: WBC 5.7, hemoglobin 13.2, hematocrit 40.6, platelet 83. Sodium 136, potassium 3.6, BUN 11, creatinine 0.80, calcium 7.5, magnesium 1.8. AST 35, ALT 26. Troponin is 0.109, 0.139. Total cholesterol 127, triglyceride 181, HDL 37, LDL 54. The patient has a brain MRI that shows no evidence of acute infarct. ASSESSMENT AND PLAN: 1. Possible transient ischemic attack. The patient already seen by Dr. Kuhn. The patient had MRI which showed normal. The patient has been on Eliquis 5 mg twice a day at home. The patient is going to have echocardiogram to evaluate her heart again hopefully today. 2. Persistent atrial fibrillation. The patient's heart rate is stable at this moment with current medication. She is on carvedilol 12.5 mg twice a day, Eliquis 5 mg twice a day. However, due to the platelet level, the patient's Eliquis dose might be stopped or might be decreased to 2.5 mg twice a day. 3. Hypertension. The patient's blood pressure is elevated at this moment. We would like to adjust the patient's blood pressure medications at this moment. 4. Hyperlipidemia. She is on statin medication. 5. Hypothyroidism. The patient's TSH is within the normal range. She is on a thyroid medication, which we would defer to the primary care doctor. 6. Coronary artery disease with stent placement x5 in 2002. The patient on the monitor has not showed any ST-segment change or T-wave inversion. We would continue to monitor. She is on the carvedilol and aspirin 81 mg once a day. 7. History of ovarian cancer, which is managed by other doctors. Thank you very much for allowing Cardiology Service to participate in the care of this patient. We will follow along with the patient's care team and make further recommendations as appropriate. Job ID: [id number]
[2020-06-09] MEDS ORDERED: Losartan 25 MG TAB PO SCH (09:00)
--- NOTE | 2020-06-09 10:34 | DIS ---
DATE OF ADMISSION: 06/07/2020 DATE OF DISCHARGE: 06/08/2020 DISCHARGE DISPOSITION: To home with [facility]. PRIMARY DISCHARGE DIAGNOSES: Transient ischemic attack, resolved; moderate dehydration, resolved; paroxysmal atrial fibrillation; acute metabolic encephalopathy on admission, resolved; hypertension; dyslipidemia; hypothyroidism; diarrhea, likely secondary to chemotherapy regimen; hypomagnesemia, likely secondary to chemotherapy drug. 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 CT angio of brain, no evidence of M1 segment occlusion, no evidence of intracranial aneurysm, no evidence of major branch occlusion. MRI brain without contrast done showed no evidence of acute infarct, no mass or hemorrhage was seen. Echo with 2D Doppler showed ejection fraction of 60% to 65%, left atrial dimension was 5.19 cm. Blood cultures x2, no growth. Stool for Shiga toxin 1 and 2, C diff, and Campylobacter antigen assay were all negative. Urine culture, no growth. Hemoglobin and hematocrit are 13 and 40, platelet count is 83, MCV is 105. BUN 11, creatinine 0.8. Total cholesterol 127, triglycerides 181, LDL 54, HDL 37. Digoxin levels were 0.59. COVID-19 PCR was not detected on 06/06/2020. DISCHARGE MEDICATIONS: 1. Colestipol 1 g every 2 days. 2. Coreg 12.5 mg twice daily. 3. Digoxin 0.125 mg p.o. daily. 4. Lipitor 20 mg p.o. at bedtime. 5. Magnesium 400 mg p.o. twice daily. 6. Morphine extended release q.6 hourly p.r.n. 7. Mills q.6 hourly p.r.n. 8. Probiotic one capsule daily. 9. Protonix 40 mg daily. 10. Synthroid 150 mcg daily. 11. Xanax p.r.n. 12. Cozaar 25 mg daily. 13. Aspirin 81 mg p.o. daily. 14. Eliquis 5 mg twice daily. 15. Norvasc 10 mg daily. 16. Multivitamin one tablet once daily. ALLERGIES: ALLERGIC TO CODEINE, LEVAQUIN, NITROGLYCERIN, TRAMADOL. INPATIENT CONSULTS: 1. Dr. Rosario for Neurology. 2. Dr. Vines for Cardiology. DISCHARGE PLAN: The patient to followup with Dr. Vines in 2 weeks, Dr. Francisco Knapp in a week. BRIEF COURSE DURING HOSPITALIZATION: The patient initially was brought to emergency room after she had an episode of confusion and difficulty speaking. In view of this history, the patient was admitted to stroke unit for possible TIA. The patient has history of ovarian cancer, stage IV, and is on carboplatin and Avastin. She has also history of paroxysmal atrial fibrillation. She has had a complete stroke workup done, which showed no evidence of acute CVA. The patient's dysarthria and difficulty finding words completely resolved. Her confusion completely resolved during her stay here. The patient initially had some EKG changes in the inferolateral wall with frequent PVCs. With the patient being on carvedilol, digoxin, and Norvasc, Cardiology consultation was requested. She was evaluated by Dr. Vines. Echo did not reveal any significant wall motion abnormalities. The patient has been cleared by Cardiology for discharge. She has ambulated with physical therapy. [facility] has been arranged with physical therapy and nursing at home. She is hemodynamically stable and neurologically stable. I have given complete updates to the patient and her daughter. Please note, I have seen and examined the patient on the day of discharge. Job ID: [id number]
== END 2020-06-08 17:46 | disposition home health service (06) | DRG 69 ==
LOC: ERS 09:18 → 2SE 13:13 → OBSVTOIN 06-07 14:44
PROVIDERS: ADMIT Internal Medicine; ATTEND Internal Medicine
DX: G45.9 Transient cerebral ischemic attack, unspecified (principal); G93.41 Metabolic encephalopathy; C56.9 Malignant neoplasm of unspecified ovary; R47.01 Aphasia; C78.6 Secondary malignant neoplasm of retroperitoneum and peritoneum; K52.1 Toxic gastroenteritis and colitis; I48.19 Other persistent atrial fibrillation; Z20.828 Contact with and (suspected) exposure to other viral communicable diseases; I16.0 Hypertensive urgency; I48.0 Paroxysmal atrial fibrillation; T45.1X5A Adverse effect of antineoplastic and immunosuppressive drugs, initial encounter; E86.0 Dehydration; I25.10 Atherosclerotic heart disease of native coronary artery without angina pectoris; E03.9 Hypothyroidism, unspecified; K21.9 Gastro-esophageal reflux disease without esophagitis; I10 Essential (primary) hypertension; E78.5 Hyperlipidemia, unspecified; F41.9 Anxiety disorder, unspecified; I25.2 Old myocardial infarction; Z90.710 Acquired absence of both cervix and uterus; Z90.49 Acquired absence of other specified parts of digestive tract; Z79.890 Hormone replacement therapy; Z79.01 Long term (current) use of anticoagulants; Z79.899 Other long term (current) drug therapy; Z88.1 Allergy status to other antibiotic agents; Z88.5 Allergy status to narcotic agent; Z87.891 Personal history of nicotine dependence
CPT/HCPCS: 36415; 36416; 70496; 70498; 70551; 71045; 80048; 80053; 80061; 80162; 81001; 82550; 82553; 83735; 84100; 84484; 85025; 85610; 85730; 87040; 87045; 87046; 87086; 87324; 87427; 87449; 87635; 93005; 93010; 93306; 94760; 96374; 96375; G0378; J0360; J2405; J3475; J7050; Q0162; Q9967; U0003

== ENCOUNTER 2020-07-01 07:40 | Outpatient (CLI) | payer MEDICARE ==
--- NOTE | 2020-07-01 08:52 | ULT ---
Sonogram abdomen complete HISTORY: Peritoneal cancer. Worsening abdominal pain and fullness. COMPARISON: CT 06/01/2020. FINDINGS: Gallbladder is incompletely distended. Wall thickening of 1.0 cm is nonspecific in the sett ing of chronic intra-abdominal disease and ascites. Patient was reportedly not tender over the gallbladder fossa at the time of the exam. Common duct dilated at 1.0 cm. Liver nodularity more conspicuous on sonogram and CT. Spleen has a normal appearance. Small to moderate amount of free fluid now evident throughout the abdomen. The spleen, and visualized portions of abdominal aorta, IVC, and pancreas are within normal limits. Renal cysts not well visualized on this exam. IMPRESSION : Increasing ascites. Now borderline moderate amount. New dilatation of the common bile duct, 1.0 cm. Raising concern for central biliary obstruction. Radi onucleotide hepatobiliary scan could be used to evaluate for biliary patency if needed.
== END 2020-07-01 07:41 | disposition home or self-care (01) ==
LOC: SCSULT 07:40
PROVIDERS: ATTEND Internal Medicine Hematology & Oncology
DX: C48.1 Malignant neoplasm of specified parts of peritoneum (principal); R18.8 Other ascites; K83.8 Other specified diseases of biliary tract
CPT/HCPCS: 93975